=== PATIENT | male | born 1945 | race Caucasian/White ===

== ENCOUNTER 2016-12-25 23:19 | Emergency (ER) | payer MEDICARE, BC ==
[2016-12-25] MEDS ORDERED: Sodium Chloride 0.9% 10 ML Syringe FLUSH PRN (23:47)
[2016-12-25] MEDS ORDERED: Nitroglycerin 0.4 MG Tab.SL SL PRN (23:47)
[2016-12-25] MEDS ORDERED: Aspirin 81 MG Tab.Chew PO ONE (23:48)
[2016-12-25] MEDS ORDERED: Aspirin 81 MG Tab.Chew ONE (23:55)
--- NOTE | 2016-12-26 01:08 | EDM.PDOC ---
ED HPI GENERAL MEDICAL PROBLEM - General Chief Complaint: Cardiovascular Problem Stated Complaint: CHEST TIGHTNESS Time Seen by Provider: 12/25/16 23:39 Source of Information: Reports: Patient History Limitations: Reports: No Limitations - History of Present Illness INITIAL COMMENTS - FREE TEXT/NARRATIVE: This patient comes to the emergency department complaining of substernal chest tightness. It's been going on for 1-1/2 hours. It started while he was lying in bed. His heart rate at that time was 120. The patient has a history of coronary artery disease and had stents placed about 4 years ago. No history of previous NV. The patient's coronary disease was picked up on a stress test and he never had any chest pain. He denies any nausea diaphoresis or shortness of breath. He takes aspirin 325 mg every morning - Related Data Allergies Allergy/AdvReac Type Severity Reaction Status Date / Time Penicillins Allergy Cannot Verified 05/31/16 15:33 Remember Home Meds: Home Meds Clopidogrel [Plavix] 75 mg PO DAILY 07/19/13 [History] Glimepiride [Amaryl] 6 mg PO BRK 07/19/13 [History] Isosorbide Mononitrate [Imdur] 30 mg PO DAILY 07/19/13 [History] Levothyroxine Sodium [Synthroid] 150 mcg PO DAILY 07/19/13 [History] Nitroglycerin [Nitrostat] 0.4 mg SL ASDIRECTED PRN 07/19/13 [History] Propranolol [Inderal] 20 mg PO BID 07/19/13 [History] Simvastatin [Zocor] 40 mg PO BEDTIME 07/19/13 [History] metFORMIN [Glucophage] 1,000 mg PO BID 07/19/13 [History] ALPRAZolam [Xanax] 0.25 mg PO DAILY PRN 03/16/16 [History] Aspirin [Halfprin] 81 mg PO DAILY 03/16/16 [History] Insulin Detemir [Levemir] 0 unit SQ BID 03/16/16 [History] PARoxetine [Paxil] 20 mg PO DAILY 03/16/16 [History] Pantoprazole [Protonix] 40 mg PO DAILY PRN 03/16/16 [History] Past Medical History Cardiovascular History: Reports: High Cholesterol, Hypertension Other Respiratory History: C pap Psychiatric History: Reports: Anxiety Endocrine/Metabolic History: Reports: Diabetes, Type II, Hypothyroidism Hematologic History: Reports: Blood Transfusion(s) - Infectious Disease History Infectious Disease History: Reports: Chicken Pox - Past Surgical History HEENT Surgical History: Reports: Cataract Surgery Cardiovascular Surgical History: Reports: Coronary Artery Stent GI Surgical History: Reports: Colonoscopy Musculoskeletal Surgical History: Reports: Arthroscopic Knee, Hip Replacement Social & Family History - Tobacco Use Smoking Status *Q: Never Smoker Second Hand Smoke Exposure: No - Caffeine Use Caffeine Use: Reports: Coffee, Soda, Tea - Recreational Drug Use Recreational Drug Use: No ED ROS GENERAL - Review of Systems Review Of Systems: ROS reveals no pertinent complaints other than HPI. ED EXAM, GENERAL - Physical Exam Exam: See Below Exam Limited By: No Limitations General Appearance: Alert, No Apparent Distress, Obese Eye Exam: Bilateral Eye: Normal Inspection Throat/Mouth: Normal Inspection Head: Atraumatic Neck: Normal Inspection Respiratory/Chest: Lungs Clear Cardiovascular: Normal Peripheral Pulses, Regular Rate, Rhythm, No Murmur GI/Abdominal: Soft, Non-Tender Back Exam: Normal Inspection Extremities: Normal Inspection Neurological: Alert, Oriented, CN II-XII Intact, No Motor/Sensory Deficits Psychiatric: Normal Affect Skin Exam: Warm, Dry Course - Vital Signs Last Recorded V/S: Last Vital Signs Temp 36.1 C 12/25/16 23:27 Pulse 93 12/26/16 00:50 Resp 16 12/26/16 00:50 BP 145/84 H 12/26/16 00:50 Pulse Ox 96 12/26/16 00:50 - Orders/Labs/Meds Orders: Active Orders 24 hr Category Date Time Status EKG Documentation Completion [RC] ASDIRECTED Care 12/25/16 23:47 Active Chest 1V Frontal [CR] Urgent Exams 12/25/16 23:46 Taken Sodium Chloride 0.9% [Saline Flush] Med 12/25/16 23:47 Active 10 ml FLUSH ASDIRECTED PRN Saline Lock Insert [OM.PC] Urgent Oth 12/25/16 23:46 Ordered EKG 12 Lead [EK] Urgent Ther 12/25/16 23:46 Ordered Medication Orders Sodium Chloride (Saline Flush) 10 ml FLUSH ASDIRECTED PRN PRN Reason: Keep Vein Open Last Admin: 12/25/16 23:55 Dose: 10 ml Labs: Laboratory Tests 12/25/16 12/25/16 Range/Units 23:53 23:53 WBC 8.0 (4.5-11.0) K/uL RBC 3.89 L (4.30-5.90) M/uL Hgb 12.9 (12.0-15.0) g/dL Hct 38.6 L (40.0-54.0) % MCV 99 H (80-98) fL MCH 33 H (27-31) pg MCHC 33 (32-36) % Plt Count 198 (150-400) K/uL Neut % (Auto) 58 (36-66) % Lymph % (Auto) 27 (24-44) % [place] % (Auto) 10 H (2-6) % Eos % (Auto) 5 H (2-4) % Baso % (Auto) 0 (0-1) % Sodium 135 L (140-148) mmol/L Potassium 4.0 (3.6-5.2) mmol/L Chloride 99 L (100-108) mmol/L Carbon Dioxide 32 (21-32) mmol/L Anion Gap 8.0 (5.0-14.0) mmol/L BUN 22 H (7-18) mg/dL Creatinine 1.1 (0.8-1.3) mg/dL Est Cr Clr Drug Dosing 59.81 mL/min Estimated GFR (MDRD) > 60 (>60) Glucose 265 H (74-106) mg/dL Calcium 8.2 L (8.5-10.1) mg/dL Total Bilirubin 0.4 (0.2-1.0) mg/dL AST 12 L (15-37) U/L ALT 24 (12-78) U/L Alkaline Phosphatase 97 (46-116) U/L Troponin I < 0.017 (0.000-0.056) ng/mL Total Protein 7.1 (6.4-8.2) g/dL Albumin 3.4 (3.4-5.0) g/dL Globulin 3.7 H (2.3-3.5) g/dL Albumin/Globulin Ratio 0.9 L (1.2-2.2) Meds: Medications Generic Name Dose Route Start Last Admin Trade Name Freq PRN Reason Stop Dose Admin Sodium Chloride 10 ml 12/25/16 23:47 12/25/16 23:55 Saline Flush FLUSH 10 ml ASDIRECTED PRN Administration Keep Vein Open Discontinued Medications Generic Name Dose Route Start Last Admin Trade Name Roselia PRN Reason Stop Dose Admin Aspirin 324 mg 12/25/16 23:48 12/25/16 23:53 Aspirin PO 12/25/16 23:49 324 mg ONETIME ONE Administration Aspirin Confirm 12/25/16 23:55 12/26/16 00:00 Aspirin Administered 12/25/16 23:56 Not Given Dose 81 mg .ROUTE .STK-MED ONE Nitroglycerin 0.4 mg 12/25/16 23:47 12/25/16 23:55 Nitrostat SL 12/25/16 23:58 0.4 mg Q5M PRN Administration Chest Pain - Radiology Interpretation Free Text/Narrative:: Chest x-ray shows normal heart size normal lung markings - Re-Assessments/Exams Free Text/Narrative Re-Assessment/Exam: 12/26/16 01:06 EKG shows a probable left atrial abnormality right bundle branch block and left anterior fascicular block. All changes previously seen. No evidence of any acute ischemia. This patient received a single sublingual nitroglycerin tablet. This dropped his systolic pressure down to the upper 90s. It did however relieve his pain. He received aspirin 324 mg. I spoke with Dr. Leyva the hospitalist at [facility] in [place] him he has accepted him in transfer. The patient remains pain free with stable vital signs. We did not feel like heparin was indicated this patient Departure - Departure Time of Disposition: 01:08 Disposition: DC/Tfer to [facility] 02 Reason for Transfer *Q: Primary PCI Indicated Condition: fair Clinical Impression: Acute coronary syndrome Forms: ED Department Discharge - My Orders Last 24 Hours: My Active Orders 12/25/16 23:46 Chest 1V Frontal [CR] Urgent Saline Lock Insert [OM.PC] Urgent EKG 12 Lead [EK] Urgent 12/25/16 23:47 EKG Documentation Completion [RC] ASDIRECTED Sodium Chloride 0.9% [Saline Flush] 10 ml FLUSH ASDIRECTED PRN - Assessment/Plan Last 24 Hours: My Active Orders 12/25/16 23:46 Chest 1V Frontal [CR] Urgent Saline Lock Insert [OM.PC] Urgent EKG 12 Lead [EK] Urgent 12/25/16 23:47 EKG Documentation Completion [RC] ASDIRECTED Sodium Chloride 0.9% [Saline Flush] 10 ml FLUSH ASDIRECTED PRN
[2016-12-26 02:52] VITALS: BP 141/62
--- NOTE | 2016-12-29 09:13 | CR ---
Mild cardiomegaly. No focal consolidation. Pulmonary vasculature within normal limits. Calcified nod ule left lung base appears similar compared to remote exam. Difficult to exclude a pulmonary nodule at the left sixth rib laterally. Consider noncontrast, nonurgent chest CT evaluation.
== END 2016-12-26 01:49 ==
LOC: JP.ED 23:19
DX: I24.9 Acute ischemic heart disease, unspecified (principal); I10 Essential (primary) hypertension; E78.00 Pure hypercholesterolemia, unspecified; F41.9 Anxiety disorder, unspecified; E11.9 Type 2 diabetes mellitus without complications; E03.9 Hypothyroidism, unspecified; Z95.5 Presence of coronary angioplasty implant and graft; Z96.649 Presence of unspecified artificial hip joint; Z98.49 Cataract extraction status, unspecified eye; Z98.890 Other specified postprocedural states; Z79.82 Long term (current) use of aspirin; Z79.4 Long term (current) use of insulin; Z79.02 Long term (current) use of antithrombotics/antiplatelets; Z79.899 Other long term (current) drug therapy; Z88.0 Allergy status to penicillin
CPT/HCPCS: 36415; 71010; 80053; 84484; 85025; 93005; 99285; A9270; J7050; 93010; 99284

== ENCOUNTER 2018-08-29 23:23 | Emergency (ER) | payer BC, MEDICARE ==
--- NOTE | 2018-08-29 23:31 | EDM.PDOC ---
ED HPI GENERAL MEDICAL PROBLEM - General Chief Complaint: Chest Pain Stated Complaint: CHEST PAINS Time Seen by Provider: 08/29/18 23:50 Source of Information: Reports: Patient, Family, Old Records, RN History Limitations: Reports: No Limitations - History of Present Illness INITIAL COMMENTS - FREE TEXT/NARRATIVE: 73 yo male awoke tonight about 10:30 pm with anterior chest pain with radiation to the L shoulder. Not worse with breathing. Has known CAD. Has not missed any of his medications recently, includes his ASA and Plavix. Has a persistent cough for about 2 mos. No fever or SOB. Quit smoking about 30 yrs ago. Pain is improving in the ER without any interventions. Had a bout of chest pain earlier in the day associated with exertion, this resolved with NTG x 1. No recent calf pain or unilateral leg swelling. Did not take NTG for this pain tonight. Onset: Today Onset Date: 08/29/18 Onset Time: 22:30 Duration: Hour(s): (1+), Improving Location: Reports: Chest Quality: Reports: Sharp Severity: Moderate Improves with: Reports: Other (time) Worsens with: Reports: Other (uncertain) Context: Reports: Other (See HPI) Associated Symptoms: Reports: Chest Pain, Cough (x about 2 mos.). Denies: Diaphoresis, Fever/Chills, Nausea/Vomiting, Shortness of Breath Treatments GRADER TENDER: Reports: Other (see below) (none) Chest Pain Score (Numeric/FACES): 6 - Related Data Allergies Allergy/AdvReac Type Severity Reaction Status Date / Time Penicillins Allergy Cannot Verified 08/29/18 23:31 Remember Home Meds: Home Meds Clopidogrel [Plavix] 75 mg PO DAILY 07/19/13 [History] Glimepiride [Amaryl] 1 mg PO BRK 07/19/13 [History] Isosorbide Mononitrate [Imdur] 60 mg PO DAILY 07/19/13 [History] Levothyroxine Sodium [Synthroid] 150 mcg PO DAILY 07/19/13 [History] Nitroglycerin [Nitrostat] 0.4 mg SL ASDIRECTED PRN 07/19/13 [History] Propranolol [Inderal] 40 mg PO BID 07/19/13 [History] metFORMIN [Glucophage] 1,000 mg PO BID 07/19/13 [History] ALPRAZolam [Xanax] 0.25 mg PO DAILY PRN 03/16/16 [History] Aspirin [Halfprin] 81 mg PO DAILY 03/16/16 [History] PARoxetine [Paxil] 20 mg PO DAILY 03/16/16 [History] Pantoprazole [Protonix] 40 mg PO DAILY PRN 03/16/16 [History] Cyanocobalamin (Vitamin B12) [Vitamin B12] 1 tab PO DAILY 01/05/18 [History] Folic Acid 1 tab PO DAILY 01/05/18 [History] Insulin Degludec [Tresiba Flextouch U-200] 68 units SQ DAILY 01/05/18 [History] Lisinopril 1 tab PO DAILY 01/05/18 [History] atorvaSTATin [Lipitor] 40 tab PO BEDTIME 01/05/18 [History] Oxybutynin Chloride 0.5 tab PO BID 08/29/18 [History] Past Medical History Cardiovascular History: Reports: High Cholesterol, Hypertension Other Respiratory History: C pap Psychiatric History: Reports: Anxiety Endocrine/Metabolic History: Reports: Diabetes, Type II, Hypothyroidism Hematologic History: Reports: Blood Transfusion(s) - Infectious Disease History Infectious Disease History: Reports: Chicken Pox - Past Surgical History HEENT Surgical History: Reports: Cataract Surgery Cardiovascular Surgical History: Reports: Coronary Artery Stent GI Surgical History: Reports: Colonoscopy Musculoskeletal Surgical History: Reports: Arthroscopic Knee, Hip Replacement Social & Family History - Caffeine Use Caffeine Use: Reports: Coffee, Soda, Tea ED ROS GENERAL - Review of Systems Review Of Systems: See Below Constitutional: Reports: No Symptoms HEENT: Reports: No Symptoms Respiratory: Reports: Cough (not new). Denies: Shortness of Breath, Pleuritic Chest Pain, Sputum, Hemoptysis Cardiovascular: Reports: Chest Pain. Denies: Claudication, Dyspnea on Exertion , Edema, Lightheadedness, Orthopnea, Palpitations, Syncope Endocrine: Reports: No Symptoms GI/Abdominal: Reports: No Symptoms. Denies: Nausea : Reports: No Symptoms Musculoskeletal: Reports: No Symptoms Skin: Reports: No Symptoms Neurological: Reports: No Symptoms Psychiatric: Reports: No Symptoms ED EXAM, GENERAL - Physical Exam Exam: See Below Exam Limited By: No Limitations General Appearance: Alert, WD/WN, No Apparent Distress, Obese Eye Exam: Bilateral Eye: Normal Inspection Ears: Normal External Exam, Normal Canal, Hearing Grossly Normal Ear Exam: Bilateral Ear: Auricle Normal, Canal Normal Nose: Normal Inspection, No Blood Throat/Mouth: Normal Inspection, Normal Lips, Normal Oropharynx, Normal Voice, No Airway Compromise Head: Atraumatic, Normocephalic Neck: Normal Inspection Respiratory/Chest: No Respiratory Distress, Lungs Clear, Normal Breath Sounds, No Accessory Muscle Use, Chest Non-Tender Cardiovascular: Regular Rate, Rhythm, No Edema GI/Abdominal: Normal Bowel Sounds, Soft, Non-Tender, No Distention, Other (obese ) Back Exam: Normal Inspection. No: CVA Tenderness (R), CVA Tenderness (L) Extremities: Normal Inspection, Normal Range of Motion, Non-Tender, Pedal Edema (trace pitting edema to both legs below the knees.). No: No Pedal Edema Neurological: Alert, Oriented, CN II-XII Intact, Normal Cognition, No Motor/ Sensory Deficits Psychiatric: Normal Affect, Normal Mood Skin Exam: Warm, Dry, Intact, Normal Color, No Rash EKG INTERPRETATION EKG Date: 08/29/18 Time: 23:25 Rhythm: NSR Rate (Beats/Min): 90 [place]: Normal P-Wave: Present QRS: RBBB (and LAFB) ST-T: Normal QT: Normal Comparison: No Change Course - Vital Signs Text/Narrative:: Dr. Leyva called @ [facility], [facility]. Last Recorded V/S: Last Vital Signs Temp 36.0 C 08/29/18 23:44 Pulse 77 08/30/18 02:12 Resp 13 08/30/18 02:12 BP 124/79 08/30/18 02:12 Pulse Ox 90 L 08/30/18 02:12 - Orders/Labs/Meds Orders: Active Orders 24 hr Category Date Time Status Cardiac Monitoring [RC] .As Directed Care 08/29/18 23:24 Active EKG Documentation Completion [RC] ASDIRECTED Care 08/29/18 23:24 Active Chest 2V [CR] Stat Exams 08/30/18 00:05 Taken Sodium Chloride 0.9% [Saline Flush] Med 08/29/18 23:51 Active 10 ml FLUSH ASDIRECTED PRN Saline Lock Insert [OM.PC] Routine Oth 08/29/18 23:51 Ordered EKG 12 Lead [EK] Routine Ther 08/29/18 23:24 Ordered Medication Orders Sodium Chloride (Saline Flush) 10 ml FLUSH ASDIRECTED PRN PRN Reason: Keep Vein Open Last Admin: 08/30/18 00:06 Dose: 10 ml Labs: Laboratory Tests 08/29/18 08/29/18 08/29/18 Range/Units 00:01 00:01 00:01 WBC 9.1 (4.5-11.0) K/uL RBC 3.70 L (4.30-5.90) M/uL Hgb 12.3 (12.0-15.0) g/dL Hct 37.8 L (40.0-54.0) % MCV 102 H (80-98) fL MCH 33 H (27-31) pg MCHC 33 (32-36) % Plt Count 210 (150-400) K/uL D-Dimer, Quantitative < 100 (0.0-400.0) ng/mL Sodium 139 L (140-148) mmol/L Potassium 5.0 (3.6-5.2) mmol/L Chloride 99 L (100-108) mmol/L Carbon Dioxide 36 H (21-32) mmol/L Anion Gap 9.0 (5.0-14.0) mmol/L BUN 19 H (7-18) mg/dL Creatinine 1.4 H (0.8-1.3) mg/dL Est Cr Clr Drug Dosing 45.46 mL/min Estimated GFR (MDRD) 50 L (>60) Glucose 310 H (74-106) mg/dL Calcium 9.3 (8.5-10.1) mg/dL Troponin I 0.028 (0.000-0.056) ng/mL 08/30/18 Range/Units 02:20 WBC (4.5-11.0) K/uL RBC (4.30-5.90) M/uL Hgb (12.0-15.0) g/dL Hct (40.0-54.0) % MCV (80-98) fL MCH (27-31) pg MCHC (32-36) % Plt Count (150-400) K/uL D-Dimer, Quantitative (0.0-400.0) ng/mL Sodium (140-148) mmol/L Potassium (3.6-5.2) mmol/L Chloride (100-108) mmol/L Carbon Dioxide (21-32) mmol/L Anion Gap (5.0-14.0) mmol/L BUN (7-18) mg/dL Creatinine (0.8-1.3) mg/dL Est Cr Clr Drug Dosing mL/min Estimated GFR (MDRD) (>60) Glucose (74-106) mg/dL Calcium (8.5-10.1) mg/dL Troponin I 0.156 H* (0.000-0.056) ng/mL Meds: Medications Generic Name Dose Route Start Last Admin Trade Name Freq PRN Reason Stop Dose Admin Sodium Chloride 10 ml 08/29/18 23:51 08/30/18 00:06 Saline Flush FLUSH 10 ml ASDIRECTED PRN Administration Keep Vein Open Discontinued Medications Generic Name Dose Route Start Last Admin Trade Name Freq PRN Reason Stop Dose Admin Aspirin 324 mg 08/30/18 00:42 08/30/18 00:46 Aspirin PO 08/30/18 00:43 324 mg ONETIME ONE Administration - Radiology Interpretation Free Text/Narrative:: CXR-neg Departure - Departure Time of Disposition: 03:00 Disposition: DC/Tfer to Acute Hospital 02 Reason for Transfer *Q: Other Condition: Fair Clinical Impression: Elevated troponin I level Chest pain Qualifiers: Chest pain type: chest pain due to myocardial ischemia Ischemic chest pain type : unstable angina pectoris Qualified Code(s): I20.0 - Unstable angina Referrals: Enrique Burrell MD [Primary Care Provider] - Forms: ED Department Discharge - My Orders Last 24 Hours: My Active Orders 08/29/18 23:24 Cardiac Monitoring [RC] .As Directed EKG Documentation Completion [RC] ASDIRECTED EKG 12 Lead [EK] Routine 08/29/18 23:51 Sodium Chloride 0.9% [Saline Flush] 10 ml FLUSH ASDIRECTED PRN Saline Lock Insert [OM.PC] Routine 08/30/18 00:05 Chest 2V [CR] Stat - Assessment/Plan Last 24 Hours: My Active Orders 08/29/18 23:24 Cardiac Monitoring [RC] .As Directed EKG Documentation Completion [RC] ASDIRECTED EKG 12 Lead [EK] Routine 08/29/18 23:51 Sodium Chloride 0.9% [Saline Flush] 10 ml FLUSH ASDIRECTED PRN Saline Lock Insert [OM.PC] Routine 08/30/18 00:05 Chest 2V [CR] Stat
[2018-08-29] MEDS ORDERED: Sodium Chloride 0.9% 10 ML Syringe FLUSH PRN (23:51)
[2018-08-30] MEDS ORDERED: Aspirin 81 MG Tab.Chew PO ONE (00:42)
[2018-08-30 02:56] VITALS: BP 124/72
--- NOTE | 2018-08-30 09:06 | CR ---
CHEST: 2 view CLINICAL HISTORY:Cough and chest pain COMPARISON:2017 FINDINGS: Heart is mildly enlarged pulmonary vascularity is normal. There are atherosclerotic changes in the aorta. No infiltrate effusion or pneumothorax is seen. There are some stable nodularity in the left lower lung field. Impression: No acute cardiopulmonary process Mild cardiomegaly
== END 2018-08-30 03:42 ==
LOC: JP.ED 23:23
DX: I20.0 Unstable angina (principal); R79.89 Other specified abnormal findings of blood chemistry; E11.9 Type 2 diabetes mellitus without complications; I10 Essential (primary) hypertension; E78.00 Pure hypercholesterolemia, unspecified; E03.9 Hypothyroidism, unspecified; Z79.4 Long term (current) use of insulin; Z79.899 Other long term (current) drug therapy; Z88.0 Allergy status to penicillin
CPT/HCPCS: 36415; 71046; 80048; 84484; 85027; 85379; 93005; 99285; A9270; 93010

== ENCOUNTER 2020-04-01 05:57 | Inpatient (IN) | payer MEDICARE ==
[2020-04-01] MEDS ORDERED: Isosorbide Mononitrate 30 MG Tab.ER PO ONE (06:20)
[2020-04-01] MEDS ORDERED: Propranolol 40 MG Tab PO ONE (06:22)
[2020-04-01] MEDS ORDERED: cefOXitin 2 GM in Sodium Chloride 0.9% 50 ML IV ONE (06:30)
[2020-04-01] MEDS ORDERED: Acetaminophen 500 MG Tab PO ONE (06:30)
[2020-04-01] MEDS ORDERED: Dextrose 5%-Lactated Ringers 1,000 ML IV SCH ×2 (06:30→12:00)
[2020-04-01] MEDS ORDERED: Bupivacaine 0.5%/EPINEPHrine 1:200,000 50 ML MDV ONE (06:58)
[2020-04-01] MEDS ORDERED: Neostigmine Methylsulfate 1 MG/ML 5 ML Syringe ONE (07:07)
[2020-04-01] MEDS ORDERED: Ondansetron 4 MG/2 ML SDV ONE (07:07)
[2020-04-01] MEDS ORDERED: Rocuronium 50 MG/5 ML Vial ONE (07:07)
[2020-04-01] MEDS ORDERED: fentaNYL 250 MCG/5 ML SDV ONE ×2 (07:07→09:08)
[2020-04-01] MEDS ORDERED: Propofol 200 MG/20 ML SDV ONE (07:07)
[2020-04-01] MEDS ORDERED: Glycopyrrolate 0.2 MG/ML 5 ML MDV ONE (07:07)
[2020-04-01] MEDS ORDERED: Succinylcholine 200 MG/10 ML MDV ONE (07:07)
[2020-04-01] MEDS ORDERED: Dexamethasone 4 MG/ML SDV ONE (07:07)
[2020-04-01] MEDS ORDERED: Meropenem 500 MG SDV ONE ×2 (08:58→10:19)
[2020-04-01] MEDS ORDERED: Lactated Ringers 1,000 ML ONE (09:58)
[2020-04-01] MEDS ORDERED: Sodium Chloride 0.9% 10 ML ONE (10:19)
[2020-04-01] MEDS ORDERED: Linezolid 600 MG in Premix Bag 1 BAG IV ONE (10:20)
[2020-04-01] MEDS ORDERED: Naloxone 0.4 MG/ML SDV IVPUSH PRN (10:25)
[2020-04-01] MEDS: HYDROmorphone/Normal Saline 15 MG/30 ML PCA IV PRN (11:01)
[2020-04-01] MEDS ORDERED: Glucose Gel 15 GM in 37.5 GM Tube PO PRN (11:39)
[2020-04-01] MEDS ORDERED: Glucagon,Human Recombinant 1 MG Vial IM PRN (11:39)
[2020-04-01] MEDS ORDERED: 50% Dextrose in Water 50 ML Syringe IVPUSH PRN (11:39)
[2020-04-01] MEDS: Insulin Lispro 100 Unit/ML 3 ML KwikPen SUBCUT PRN ×3 (11:47→23:20)
[2020-04-01] MEDS ORDERED: Ondansetron 4 MG/2 ML SDV IVPUSH PRN (11:54)
[2020-04-01] MEDS ORDERED: hydrOXYzine HCL 100 MG/2 ML SDV IM PRN (11:54)
[2020-04-01] MEDS: Dextrose 5%-Lactated Ringers 1,000 ML IV SCH (12:00)
[2020-04-01] MEDS: Lactated Ringers 1,000 ML IV SCH (12:00)
[2020-04-01] MEDS ORDERED: Nitroglycerin 0.4 MG Tab.SL SL PRN (13:10)
[2020-04-01] MEDS: Meropenem 500 MG in Sodium Chloride 0.9% 50 ML IV SCH ×2 (14:51→21:01)
[2020-04-01] MEDS: Pantoprazole 40 MG Vial IV SCH (14:52)
[2020-04-01] MEDS ORDERED: Lactated Ringers 500 ML IV ONE (16:45)
[2020-04-01] MEDS: metFORMIN 500 MG Tab PO SCH (20:08)
[2020-04-01] MEDS: Lisinopril 2.5 MG Tab PO SCH (20:08)
[2020-04-01] MEDS: Isosorbide Mononitrate 30 MG Tab.ER PO SCH (20:08)
[2020-04-01] MEDS: Propranolol 40 MG Tab PO SCH (21:01)
[2020-04-01] MEDS: Linezolid 600 MG in Premix Bag 1 BAG IV SCH (21:43)
[2020-04-01] MEDS: Lactated Ringers 500 ML IV SCH (21:44)
[2020-04-02] MEDS: Lactated Ringers 1,000 ML IV SCH
[2020-04-02] MEDS ORDERED: Lactated Ringers 500 ML IV SCH (02:15)
[2020-04-02] MEDS: Dextrose 5%-Lactated Ringers 1,000 ML IV SCH (02:15)
[2020-04-02] MEDS: Lactated Ringers 500 ML IV SCH (02:22)
[2020-04-02] MEDS: Pantoprazole 40 MG Vial IV SCH ×2 (02:28→14:10)
[2020-04-02] MEDS: Meropenem 500 MG in Sodium Chloride 0.9% 50 ML IV SCH ×4 (02:28→21:08)
[2020-04-02] MEDS: Insulin Lispro 100 Unit/ML 3 ML KwikPen SUBCUT PRN ×4 (05:06→23:28)
[2020-04-02] MEDS: LORazepam 2 MG/ML SDV IV PRN ×2 (05:32→16:33)
[2020-04-02] MEDS ORDERED: Sodium Chloride 0.9% 500 ML IV ONE (06:31)
[2020-04-02] MEDS: Propranolol 40 MG Tab PO SCH ×2 (08:25→21:25)
[2020-04-02] MEDS: Isosorbide Mononitrate 30 MG Tab.ER PO SCH (08:25)
[2020-04-02] MEDS: Sodium Chloride 0.9% 1,000 ML IV SCH ×3 (08:25→19:55)
[2020-04-02] MEDS: metFORMIN 500 MG Tab PO SCH ×2 (08:28→16:59)
[2020-04-02] MEDS: Magnesium Sulfate/Water 2 GM in Premix Bag 1 BAG IV SCH ×3 (08:28→21:15)
[2020-04-02] MEDS: Aspirin 81 MG Tab.EC PO SCH (08:28)
[2020-04-02] MEDS: Clopidogrel 75 MG Tab PO SCH (08:28)
[2020-04-02] MEDS: Lisinopril 2.5 MG Tab PO SCH (08:32)
[2020-04-02] MEDS: Furosemide 20 MG/2 ML VIAL IV SCH ×2 (10:06→10:39)
[2020-04-02] MEDS: Linezolid 600 MG in Premix Bag 1 BAG IV SCH ×2 (10:06→21:49)
[2020-04-02] MEDS ORDERED: Norepinephrine 4 MG in Dextrose 5% in Water 246 ML IV SCH ×2 (10:30)
[2020-04-02] MEDS ORDERED: Sodium Polystyrene Sulfonate 15 GM/60 ML Susp 60 ML Bot PO ONE (11:00)
--- NOTE | 2020-04-02 13:54 | PCM.CONS ---
H&P History of Present Illness - General Date of Service: 04/02/20 Admit Problem/Dx: Admission Diagnosis/Problem Admission Diagnosis/Problem Surgical procedure Source of Information: Patient, Family, Provider, RN Notes Reviewed History Limitations: Reports: Altered Mental Status - History of Present Illness Initial Comments - Free Text/Narative: Mr. Arceo is a 74-year-old gentleman who I have been asked to see by Dr. Nieto for hospitalist consult and assistance in postoperative medical management. Mr. Arceo was admitted yesterday by Dr. Nieto and underwent cholecystectomy. Surgery was much more complicated than originally anticipated. He was found to have an abscess with involvement of the hepatic flexure of the colon. Surgery was much more prolonged than expected and associated with significant infection. During the night he has required repeated fluid boluses to maintain adequate blood pressures. White blood cell count is markedly elevated and he has been treated with Zyvox and meropenem. He has developed acute kidney injury and associated hyperkalemia. He is conversant this morning but confused and somewhat sleepy. - Related Data Allergies/Adverse Reactions: Allergies Allergy/AdvReac Type Severity Reaction Status Date / Time Penicillins Allergy Cannot Verified 08/29/18 23:31 Remember Home Medications: Home Meds Clopidogrel [Plavix] 75 mg PO DAILY 07/19/13 [History] Glimepiride [Amaryl] 6 mg PO BRK 07/19/13 [History] Isosorbide Mononitrate [Imdur] 60 mg PO DAILY 07/19/13 [History] Levothyroxine Sodium [Synthroid] 150 mcg PO DAILY 07/19/13 [History] Nitroglycerin [Nitrostat] 0.4 mg SL ASDIRECTED PRN 07/19/13 [History] Propranolol [Inderal] 40 mg PO BID 07/19/13 [History] metFORMIN [Glucophage] 1,000 mg PO BID 07/19/13 [History] ALPRAZolam [Xanax] 0.25 mg PO DAILY PRN 03/16/16 [History] Aspirin [Halfprin] 81 mg PO DAILY 03/16/16 [History] PARoxetine [Paxil] 20 mg PO DAILY 03/16/16 [History] Pantoprazole [Protonix] 40 mg PO DAILY PRN 03/16/16 [History] Folic Acid 1 mg PO DAILY 01/05/18 [History] Insulin Degludec [Tresiba Flextouch U-200] 75 units SQ DAILY 01/05/18 [History] Lisinopril 2.5 mg PO DAILY 01/05/18 [History] atorvaSTATin [Lipitor] 40 tab PO BEDTIME 01/05/18 [History] Oxybutynin Chloride 5 mg PO BID 08/29/18 [History] Furosemide 20 mg PO DAILY 03/28/20 [History] SitaGLIPtin [Januvia] 50 mg PO DAILY 03/28/20 [History] hydrOXYzine HCL [Hydroxyzine HCl] 50 mg PO BEDTIME 03/28/20 [History] Past Medical History HEENT History: Reports: Impaired Vision Other HEENT History: wears glasses Cardiovascular History: Reports: High Cholesterol, Hypertension, SOB on Exertion, Stents Respiratory History: Reports: Other (See Below) Other Respiratory History: C pap-does not use Gastrointestinal History: Reports: Cholelithiasis, GERD Musculoskeletal History: Reports: Back Pain, Chronic Neurological History: Reports: Concussion Psychiatric History: Reports: Anxiety Endocrine/Metabolic History: Reports: Diabetes, Type II, Hypothyroidism, Obesity/BMI 30+ Hematologic History: Reports: Blood Transfusion(s) - Infectious Disease History Infectious Disease History: Reports: Chicken Pox, Measles, MRSA, Mumps, Rubella Other Infectious Disease History: states has been retested negative for MRSA - Past Surgical History HEENT Surgical History: Reports: Cataract Surgery, Oral Surgery, Tonsillectomy Cardiovascular Surgical History: Reports: Coronary Artery Stent Respiratory Surgical History: Reports: None GI Surgical History: Reports: Colonoscopy Endocrine Surgical History: Reports: None Neurological Surgical History: Reports: Lumbar Spine Musculoskeletal Surgical History: Reports: Arthroscopic Knee, Hip Replacement Dermatological Surgical History: Reports: None Social & Family History - Family History Cardiac: Reports: Heart Valve Replacement, [place] Musculoskeletal: Reports: Arthritis Neurological: Reports: Alzheimers Disease Oncologic: Reports: Colon, Lung - Tobacco Use Smoking Status *Q: Former Smoker Used Tobacco, but Quit: Yes Month/Year Tobacco Last Used: 1989 Second Hand Smoke Exposure: No - Caffeine Use Caffeine Use: Reports: Coffee - Recreational Drug Use Recreational Drug Use: No H&P Review of Systems - Review of Systems: Review Of Systems: See Below General: Reports: ROS unobtainable (Confusion) Exam - Exam Exam: See Below - Vital Signs Vital Signs: Last Vital Signs Temp 97.8 F 04/02/20 12:00 Pulse 86 04/02/20 09:30 Resp 10 L 04/02/20 13:00 BP 125/42 L 04/02/20 13:00 Pulse Ox 96 04/02/20 13:00 Weight: 253 lb - Exam Quality Assessment: Supplemental Oxygen, Urinary Catheter, DVT Prophylaxis General: Cooperative, Mild Distress, Sedated, Lethargic Neck: Supple, Trachea Midline, +2 Carotid Pulse wo Bruit Lungs: Clear to Auscultation, Normal Respiratory Effort, Decreased Breath Sounds. No: Rhonchi, Wheezing Cardiovascular: Regular Rate, Regular Rhythm, Normal S1, Normal S2, Systolic Murmur. No: Diastolic Murmur GI/Abdominal Exam: Soft, No Organomegaly, Tender. No: Distended, Guarding, Rigid, Rebound Extremities: Non-Tender, No Pedal Edema - Patient Data Lab Results Last 24 hrs: Laboratory Results - last 24 hr 04/02/20 04/02/20 04/02/20 Range/Units 04:10 04:10 05:45 WBC 28.5 H (4.5-11.0) K/uL RBC 2.64 L (4.30-5.90) M/uL Hgb 8.1 L D (12.0-15.0) g/dL Hct 26.8 L (40.0-54.0) % MCV 102 H (80-98) fL MCH 31 (27-31) pg MCHC 30 L (32-36) % Plt Count 385 (150-400) K/uL Sodium 133 L 133 L (140-148) mmol/L Potassium 6.4 H* 6.1 H* (3.6-5.2) mmol/L Chloride 98 L 98 L (100-108) mmol/L Carbon Dioxide 29 29 (21-32) mmol/L Anion Gap 12.4 12.1 (5.0-14.0) mmol/L BUN 29 H D 29 H (7-18) mg/dL Creatinine 1.9 H D 2.0 H (0.8-1.3) mg/dL Est Cr Clr Drug Dosing 32.72 31.09 mL/min Estimated GFR (MDRD) 35 L 33 L (>60) Glucose 297 H 294 H (74-106) mg/dL Calcium 7.9 L 7.8 L (8.5-10.1) mg/dL Phosphorus 5.2 H (2.5-4.9) mg/dL Magnesium 1.2 L (1.8-2.4) mg/dL Total Bilirubin 0.5 (0.2-1.0) mg/dL AST 21 (15-37) U/L ALT 24 (12-78) U/L Alkaline Phosphatase 151 H (46-116) U/L NT-Pro-B Natriuret Pep 787 H (5-125) pg/mL Total Protein 6.3 L (6.4-8.2) g/dL Albumin 2.2 L (3.4-5.0) g/dL Globulin 4.1 H (2.3-3.5) g/dL Albumin/Globulin Ratio 0.5 L (1.2-2.2) Blood Type Gel Antibody Screen Crossmatch 04/02/20 04/02/20 04/02/20 Range/Units 05:45 11:58 11:58 WBC 26.6 H (4.5-11.0) K/uL RBC 2.90 L (4.30-5.90) M/uL Hgb 8.7 L (12.0-15.0) g/dL Hct 28.5 L (40.0-54.0) % MCV 98 (80-98) fL MCH 30 (27-31) pg MCHC 31 L (32-36) % Plt Count 358 (150-400) K/uL Sodium 133 L (140-148) mmol/L Potassium 5.9 H (3.6-5.2) mmol/L Chloride 98 L (100-108) mmol/L Carbon Dioxide 28 (21-32) mmol/L Anion Gap 12.9 (5.0-14.0) mmol/L BUN 29 H (7-18) mg/dL Creatinine 1.8 H (0.8-1.3) mg/dL Est Cr Clr Drug Dosing 34.54 mL/min Estimated GFR (MDRD) 37 L (>60) Glucose 284 H (74-106) mg/dL Calcium 7.6 L (8.5-10.1) mg/dL Phosphorus (2.5-4.9) mg/dL Magnesium (1.8-2.4) mg/dL Total Bilirubin 0.7 (0.2-1.0) mg/dL AST 24 (15-37) U/L ALT 24 (12-78) U/L Alkaline Phosphatase 143 H (46-116) U/L NT-Pro-B Natriuret Pep 634 H (5-125) pg/mL Total Protein 6.3 L (6.4-8.2) g/dL Albumin 2.3 L (3.4-5.0) g/dL Globulin 4.0 H (2.3-3.5) g/dL Albumin/Globulin Ratio 0.6 L (1.2-2.2) Blood Type A POSITIVE Gel Antibody Screen Negative Crossmatch See Detail Result Diagrams: 04/02/20 11:58 04/02/20 11:58 [place] Results Last 24 hrs: Microbiology 04/01/20 09:06 Gram Stain - Final Abdominal Fluid - Drainage Wound Culture - Preliminary Anaerobic Culture - Preliminary Sepsis Event Note - Evaluation Sepsis Screening Result: No Definite Risk - Focused Exam Vital Signs: Vital Signs Temp Temp Pulse Resp BP Pulse Ox 04/02/20 13:00 10 L 125/42 L 96 04/02/20 12:00 97.8 F 13 118/39 L 96 04/02/20 11:24 96 04/02/20 11:00 11 L 120/55 L 97 04/02/20 10:00 13 104/56 L 94 L 04/02/20 09:30 98.3 F 86 13 92/44 L 93 L 04/02/20 09:00 97.8 F 84 12 107/79 93 L 04/02/20 08:30 97.8 F 89 20 130/46 L 92 L 04/02/20 08:00 97.4 F 82 10 L 96/33 L 96 04/02/20 07:44 97.2 F 80 11 L 99/36 L 04/02/20 07:29 97.3 F 79 10 L 87/33 L 96 04/02/20 07:14 97.3 F 77 10 L 103/36 L 95 04/02/20 06:59 97.3 F 76 10 L 109/46 L 96 04/02/20 06:46 96.9 F 82 11 L 118/37 L 88 L 04/02/20 06:00 97.4 F 72 10 L 97/53 L 96 04/02/20 05:00 97.1 F 78 9 L 105/58 L 95 04/02/20 04:00 97.3 F 76 11 L 115/52 L 96 04/02/20 03:00 97.4 F 75 10 L 107/39 L 93 L 04/02/20 02:00 68 13 97/40 L 94 L Consult PN Assessment/Plan Procedures: Procedures ASSAY OF TROPONIN QUANT (08/29/18) CARDIAC REHAB/MONITOR (11/30/18) CARDIOVASCULAR STRESS TEST (01/07/18) CARDIOVASCULAR STRESS TEST (01/07/18) CARDIOVASCULAR STRESS TEST (03/27/16) CARDIOVASCULAR STRESS TEST (03/27/16) CHEST X-RAY 1 VIEW FRONTAL (12/25/16) CHEST X-RAY 2VW FRONTAL&LATL (05/31/16) COMPLETE CBC AUTOMATED (08/29/18) COMPLETE CBC W/AUTO DIFF WBC (12/25/16) COMPREHEN METABOLIC PANEL (12/25/16) ELECTROCARDIOGRAM TRACING (08/29/18) EMERGENCY DEPT VISIT (08/29/18) EMERGENCY DEPT VISIT (05/31/16) EMERGENCY DEPT VISIT (05/07/15) EMERGENCY DEPT VISIT (05/07/15) FIBRIN DEGRADATION QUANT (08/29/18) HT MUSCLE IMAGE SPECT MULT (01/07/18) METABOLIC PANEL TOTAL CA (08/29/18) POLYSOM 6/> YRS 4/> WILLI (06/05/14) POLYSOM 6/>YRS CPAP 4/> PARM (08/19/14) ROUTINE VENIPUNCTURE (08/29/18) TTE F-UP OR LMTD (10/11/18) TTE W/DOPPLER COMPLETE (12/06/17) X-RAY EXAM CHEST 2 VIEWS (08/29/18) Problem List Initiated/Reviewed/Updated: Yes My Orders Last 24 Hours: My Active Orders 04/02/20 10:22 Consult to Physical Therapy [PT Evaluation and Treatment] [CONS] Routine 04/02/20 10:30 Norepinephrine [Levophed] 4 mg Dextrose 5% in Water 246 ml IV TITRATE Plan: ASSESSMENT AND RECOMMENDATIONS HYPOTENSION-likely secondary to third spacing of fluid with recent extensive surgery. Possible component of underlying infection. -IV fluids as needed -IV norepinephrine if needed to maintain MAP above 65 -Continue current IV antibiotics pending culture results ACUTE KIDNEY INJURY-secondary to transient hypotension -IV fluids as above -Maintain MAP greater than 65 -Closely monitor urine output and renal function HYPERKALEMIA-secondary to acute kidney injury -Kayexalate 30 g p.o. given this morning -Monitor serial potassium levels STATUS POST SURGICAL PROCEDURE -Postoperative care per Dr. Nieto -Vigorous pulmonary toilet -Encourage activity Requesting Provider: CLIFTON Date Consult Requested: 04/02/20 Reason for Consult: Postoperative medical management Patient History Reviewed: Yes
[2020-04-02] MEDS ORDERED: Furosemide 20 MG/2 ML VIAL IVPUSH ONE (19:01)
[2020-04-03] MEDS: Magnesium Sulfate/Water 2 GM in Premix Bag 1 BAG IV SCH ×4 (01:48→20:20)
[2020-04-03] MEDS: Meropenem 500 MG in Sodium Chloride 0.9% 50 ML IV SCH ×4 (02:52→21:23)
[2020-04-03] MEDS: Sodium Chloride 0.9% 1,000 ML IV SCH ×3 (03:01→23:12)
[2020-04-03] MEDS: LORazepam 2 MG/ML SDV IV PRN ×2 (05:04→18:49)
[2020-04-03] MEDS: Insulin Lispro 100 Unit/ML 3 ML KwikPen SUBCUT PRN ×4 (05:04→23:17)
[2020-04-03] MEDS: metFORMIN 500 MG Tab PO SCH ×2 (09:00→16:04)
[2020-04-03] MEDS: Lisinopril 2.5 MG Tab PO SCH (09:10)
--- NOTE | 2020-04-03 09:25 | PCM.CONSN ---
- General Info Date of Service: 04/03/20 Subjective Update: Mr. Arceo been stable and improved over the last 24 hours. Hypotension has resolved, renal function is back to baseline, and hyperkalemia has resolved. He has been up in the chair and walking short distances. - Review of Systems General: Reports: Weakness, Fatigue. Denies: Fever, Chills Pulmonary: Reports: No Symptoms Cardiovascular: Reports: No Symptoms Gastrointestinal: Reports: Abdominal Pain. Denies: Constipation, Diarrhea, Difficulty Swallowing, Flatus, Nausea, Vomiting - Patient Data Vitals - Most Recent: Last Vital Signs Temp 96.8 F L 04/03/20 05:00 Pulse 82 04/03/20 06:00 Resp 15 04/03/20 06:00 BP 133/55 L 04/03/20 06:00 Pulse Ox 94 L 04/03/20 06:00 Weight - Most Recent: 253 lb I&O - Last 24 Hours: Intake & Output 04/02/20 04/03/20 04/03/20 22:59 06:59 14:59 Intake Total 3208 1938 Output Total 1185 730 Balance 2022 1208 Lab Results Last 24 Hours: Laboratory Results - last 24 hr 04/02/20 04/02/20 04/02/20 Range/Units 05:45 11:58 11:58 WBC 26.6 H (4.5-11.0) K/uL RBC 2.90 L (4.30-5.90) M/uL Hgb 8.7 L (12.0-15.0) g/dL Hct 28.5 L (40.0-54.0) % MCV 98 (80-98) fL MCH 30 (27-31) pg MCHC 31 L (32-36) % Plt Count 358 (150-400) K/uL Sodium 133 L (140-148) mmol/L Potassium 5.9 H (3.6-5.2) mmol/L Chloride 98 L (100-108) mmol/L Carbon Dioxide 28 (21-32) mmol/L Anion Gap 12.9 (5.0-14.0) mmol/L BUN 29 H (7-18) mg/dL Creatinine 1.8 H (0.8-1.3) mg/dL Est Cr Clr Drug Dosing 34.54 mL/min Estimated GFR (MDRD) 37 L (>60) Glucose 284 H (74-106) mg/dL Calcium 7.6 L (8.5-10.1) mg/dL Phosphorus (2.5-4.9) mg/dL Total Bilirubin 0.7 (0.2-1.0) mg/dL AST 24 (15-37) U/L ALT 24 (12-78) U/L Alkaline Phosphatase 143 H (46-116) U/L NT-Pro-B Natriuret Pep 634 H (5-125) pg/mL Total Protein 6.3 L (6.4-8.2) g/dL Albumin 2.3 L (3.4-5.0) g/dL Globulin 4.0 H (2.3-3.5) g/dL Albumin/Globulin Ratio 0.6 L (1.2-2.2) Blood Type A POSITIVE Gel Antibody Screen Negative Crossmatch See Detail 04/02/20 04/02/20 04/03/20 Range/Units 17:00 17:00 05:33 WBC 27.3 H 20.1 H (4.5-11.0) K/uL RBC 2.82 L 3.09 L (4.30-5.90) M/uL Hgb 8.6 L 9.4 L (12.0-15.0) g/dL Hct 27.6 L 30.0 L (40.0-54.0) % MCV 98 97 (80-98) fL MCH 31 30 (27-31) pg MCHC 31 L 31 L (32-36) % Plt Count 351 314 (150-400) K/uL Sodium 135 L (140-148) mmol/L Potassium 4.9 (3.6-5.2) mmol/L Chloride 99 L (100-108) mmol/L Carbon Dioxide 29 (21-32) mmol/L Anion Gap 11.9 (5.0-14.0) mmol/L BUN 28 H (7-18) mg/dL Creatinine 1.7 H (0.8-1.3) mg/dL Est Cr Clr Drug Dosing 36.53 mL/min Estimated GFR (MDRD) 40 L (>60) Glucose 264 H (74-106) mg/dL Calcium 7.9 L (8.5-10.1) mg/dL Phosphorus (2.5-4.9) mg/dL Total Bilirubin 0.5 (0.2-1.0) mg/dL AST 22 (15-37) U/L ALT 22 (12-78) U/L Alkaline Phosphatase 144 H (46-116) U/L NT-Pro-B Natriuret Pep 750 H (5-125) pg/mL Total Protein 6.3 L (6.4-8.2) g/dL Albumin 2.4 L (3.4-5.0) g/dL Globulin 3.9 H (2.3-3.5) g/dL Albumin/Globulin Ratio 0.6 L (1.2-2.2) Blood Type Gel Antibody Screen Crossmatch 04/03/20 Range/Units 05:33 WBC (4.5-11.0) K/uL RBC (4.30-5.90) M/uL Hgb (12.0-15.0) g/dL Hct (40.0-54.0) % MCV (80-98) fL MCH (27-31) pg MCHC (32-36) % Plt Count (150-400) K/uL Sodium 135 L (140-148) mmol/L Potassium 4.6 (3.6-5.2) mmol/L Chloride 98 L (100-108) mmol/L Carbon Dioxide 31 (21-32) mmol/L Anion Gap 10.6 (5.0-14.0) mmol/L BUN 20 H (7-18) mg/dL Creatinine 1.2 (0.8-1.3) mg/dL Est Cr Clr Drug Dosing 51.75 mL/min Estimated GFR (MDRD) 59 L (>60) Glucose 195 H (74-106) mg/dL Calcium 7.5 L (8.5-10.1) mg/dL Phosphorus 1.9 L (2.5-4.9) mg/dL Total Bilirubin 0.5 (0.2-1.0) mg/dL AST 25 (15-37) U/L ALT 22 (12-78) U/L Alkaline Phosphatase 138 H (46-116) U/L NT-Pro-B Natriuret Pep 1382 H (5-125) pg/mL Total Protein 6.3 L (6.4-8.2) g/dL Albumin 2.3 L (3.4-5.0) g/dL Globulin 4.0 H (2.3-3.5) g/dL Albumin/Globulin Ratio 0.6 L (1.2-2.2) Blood Type Gel Antibody Screen Crossmatch [place] Results Last 24 Hours: Microbiology 04/01/20 09:06 Gram Stain - Final Abdominal Fluid - Drainage Wound Culture - Final Viridans Streptococcus Viridans Streptococcus#2 Anaerobic Culture - Preliminary NO GROWTH AFTER 2 DAYS Med Orders - Current: Current Medications Alogliptin Benzoate (Alogliptin) 12.5 mg PO DAILY [facility] Last Admin: 04/02/20 08:28 Dose: 12.5 mg Documented by: Alvimopan (Entereg) 12 mg PO BID [facility] Stop: 04/08/20 21:01 Last Admin: 04/02/20 21:25 Dose: 12 mg Documented by: Aspirin (Halfprin) 81 mg PO DAILY [facility] Last Admin: 04/02/20 08:28 Dose: 81 mg Documented by: Clopidogrel Bisulfate (Plavix) 75 mg PO DAILY [facility] Last Admin: 04/02/20 08:28 Dose: 75 mg Documented by: Dextrose (Glutose 15) 15 gm PO ASDIRECTED PRN PRN Reason: HYPOGLYCEMIA Dextrose/Water (Dextrose 50% In Water) 50 ml IVPUSH ASDIRECTED PRN PRN Reason: HYPOGLYCEMIA Furosemide (Lasix) 20 mg IV DAILY [facility] Last Admin: 04/02/20 10:39 Dose: 20 mg Documented by: Glucagon (Glucagen) 1 mg IM ASDIRECTED PRN PRN Reason: HYPOGLYCEMIA Hydromorphone HCl (Dilaudid Glassware Maker 15 Mg In Ns 30 Ml) 0 mg IV ASDIRECTED PRN; Protocol PRN Reason: Pain Last Admin: 04/01/20 11:01 Dose: 0.3 mg Documented by: Hydroxyzine HCl (Vistaril) 100 mg IM Q4H PRN PRN Reason: PAIN Linezolid 600 mg/ Premix 300 mls @ 300 mls/hr IV Q12H [facility] Last Admin: 04/02/20 21:49 Dose: 300 mls/hr Documented by: Meropenem 500 mg/ Sodium (Chloride) 50 mls @ 100 mls/hr IV Q6H [facility] Last Admin: 04/03/20 02:52 Dose: 100 mls/hr Documented by: Lactated Ringer's (Ringers, Lactated) 500 mls @ 500 mls/hr IV ASDIRECTED [facility] Last Admin: 04/02/20 02:22 Dose: 500 mls/hr Documented by: Magnesium Sulfate 2 gm/ Premix 50 mls @ 25 mls/hr IV Q6H [facility] Stop: 04/05/20 03:59 Last Admin: 04/03/20 01:48 Dose: 25 mls/hr Documented by: Norepinephrine Bitartrate 4 mg (/ Dextrose/Water) 250 mls @ 7.5 mls/hr IV TITRATE [facility]; Protocol Sodium Chloride (Normal Saline) 1,000 mls @ 100 mls/hr IV ASDIRECTED [facility] Insulin Human Lispro (Humalog) 0 unit SUBCUT Q6H PRN; Protocol PRN Reason: MEDIUM CORRECTIONAL DOSING Last Admin: 04/03/20 05:04 Dose: 2 units Documented by: Isosorbide Mononitrate (Imdur) 60 mg PO DAILY [facility] Last Admin: 04/02/20 08:25 Dose: Not Given Documented by: Lisinopril (Prinivil) 2.5 mg PO DAILY [facility] Last Admin: 04/02/20 08:32 Dose: Not Given Documented by: Lorazepam (Ativan) 0.25 mg IV Q6H PRN PRN Reason: ANXIETY Last Admin: 04/03/20 05:04 Dose: 0.25 mg Documented by: Metformin HCl (Glucophage) 1,000 mg PO BIDMEALS [facility] Last Admin: 04/02/20 16:59 Dose: 1,000 mg Documented by: Naloxone HCl (Narcan) 0.1 mg IVPUSH Q2M PRN PRN Reason: Respiratory Distress Nitroglycerin (Nitrostat) 0.4 mg SL ASDIRECTED PRN PRN Reason: CHEST PAIN Ondansetron HCl (Zofran) 4 mg IVPUSH Q4H PRN PRN Reason: Nausea Pantoprazole Sodium (Protonix Iv) 40 mg IV Q24H [facility] Propranolol HCl (Inderal) 40 mg PO BID [facility] Last Admin: 04/02/20 21:25 Dose: 40 mg Documented by: Discontinued Medications Acetaminophen (Tylenol Extra Strength) 1,000 mg PO ONETIME ONE Stop: 04/01/20 06:31 Last Admin: 04/01/20 06:23 Dose: 1,000 mg Documented by: Bupivacaine HCl/Epinephrine Bitart (Marcaine 0.5%/Epinephrine 1:200,000) Confirm Administered Dose 50 ml .ROUTE .STK-MED ONE Stop: 04/01/20 06:59 Last Admin: 04/01/20 11:15 Dose: 50 ml Documented by: Ropivacaine 59 ml/Dexamethasone 8 mg/Epinephrine HCl 0.4 mg/ Sodium Chloride 18.6 ml 0 ml NERVRT ASDIRECTED [facility] Last Admin: 04/01/20 08:45 Dose: 80 syringe Documented by: Dexamethasone (Dexamethasone) Confirm Administered Dose 4 mg .ROUTE .STK-MED ONE Stop: 04/01/20 07:08 Fentanyl (Sublimaze) Confirm Administered Dose 250 mcg .ROUTE .ST-MED ONE Stop: 04/01/20 07:08 Fentanyl (Sublimaze) Confirm Administered Dose 250 mcg .ROUTE .STK-MED ONE Stop: 04/01/20 09:09 Furosemide (Lasix) 20 mg IVPUSH ONETIME ONE Stop: 04/02/20 19:02 Last Admin: 04/02/20 20:55 Dose: 20 mg Documented by: Glycopyrrolate (Robinul) Confirm Administered Dose 1 mg .ROUTE .STK-MED ONE Stop: 04/01/20 07:08 Cefoxitin Sodium 2 gm/ Sodium (Chloride) 50 mls @ 100 mls/hr IV ONETIME ONE Stop: 04/01/20 06:59 Last Admin: 04/01/20 08:13 Dose: 100 mls/hr Documented by: Dextrose/Lactated Ringer's (Dextrose 5%-Lactated Ringers) 1,000 mls [facility] Admin: 04/01/20 07:22 Dose: 100 mls/hr Documented by: Lactated Ringer's (Ringers, Lactated) Confirm Administered Dose 1,000 mls @ as directed .ROUTE .STK-MED ONE Stop: 04/01/20 09:59 Linezolid (Zyvox) Confirm Administered Dose 300 mls @ as directed .ROUTE .STK- MED ONE Stop: 04/01/20 10:06 Linezolid (Zyvox) Confirm Administered Dose 300 mls @ as directed .ROUTE .STK- MED ONE Stop: 04/01/20 10:07 Linezolid 600 mg/ Premix 300 mls @ 300 mls/hr IV ONETIME ONE Stop: 04/01/20 11:19 Last Admin: 04/01/20 10:17 Dose: 300 mls/hr Documented by: Sodium Chloride (Normal Saline) Confirm Administered Dose 10 mls @ as directed .ROUTE .STK-MED ONE Stop: 04/01/20 10:20 Dextrose/Lactated Ringer's (Dextrose 5%-Lactated Ringers) 1,000 mls @ 25 mls/hr IV ASDIRECTED [facility] Lactated Ringer's (Ringers, Lactated) 1,000 mls @ 125 mls/hr IV ASDIRECTED [facility] Last Admin: 04/02/20 00:00 Dose: 125 mls/hr Documented by: Dextrose/Lactated Ringer's (Dextrose 5%-Lactated Ringers) 1,000 mls @ 75 mls/hr IV ASDIRECTED [facility] Last Admin: 04/02/20 02:15 Dose: 75 mls/hr Documented by: Lactated Ringer's (Ringers, Lactated) 500 mls @ 500 mls/hr IV .BOLUS ONE Stop: 04/01/20 17:44 Last Admin: 04/01/20 16:51 Dose: 500 mls/hr Documented by: Lactated Ringer's (Ringers, Lactated) 500 mls @ 500 mls/hr IV ASDIRECTED [facility] Stop: 04/02/20 03:14 Sodium Chloride (Normal Saline) 500 mls @ 500 mls/hr IV .BOLUS ONE Stop: 04/02/20 07:30 Last Admin: 04/02/20 06:55 Dose: 500 mls/hr Documented by: Sodium Chloride (Normal Saline) 1,000 mls @ 175 mls/hr IV ASDIRECTED [facility] Last Admin: 04/03/20 03:01 Dose: 175 mls/hr Documented by: Isosorbide Mononitrate (Imdur) 60 mg PO ONETIME ONE Stop: 04/01/20 06:21 Last Admin: 04/01/20 07:08 Dose: 60 mg Documented by: Linezolid (Zyvox) 600 mg IRR .STK-MED ONE Stop: 04/01/20 10:01 Last Admin: 04/01/20 10:00 Dose: 600 mg Documented by: Linezolid (Zyvox) 600 mg IRR .STK-MED ONE Stop: 04/01/20 10:33 Last Admin: 04/01/20 10:32 Dose: 600 mg Documented by: Meropenem (Merrem) Confirm Administered Dose 500 mg .ROUTE .STK-MED ONE Stop: 04/01/20 08:59 Last Admin: 04/01/20 10:00 Dose: 500 mg Documented by: Meropenem (Merrem) Confirm Administered Dose 500 mg .ROUTE .STK-MED ONE Stop: 04/01/20 10:20 Last Admin: 04/01/20 10:32 Dose: 500 mg Documented by: Neostigmine Methylsulfate (Neostigmine) Confirm Administered Dose 5 mg .ROUTE .STK-MED ONE Stop: 04/01/20 07:08 Ondansetron HCl (Zofran) Confirm Administered Dose 4 mg .ROUTE .STK-MED ONE Stop: 04/01/20 07:08 Pantoprazole Sodium (Protonix Iv) 40 mg IV Q12H [facility] Stop: 04/02/20 14:01 Last Admin: 04/02/20 14:10 Dose: 40 mg Documented by: Propofol (Diprivan 20 Ml) Confirm Administered Dose 200 mg .ROUTE .STK-MED ONE Stop: 04/01/20 07:08 Propranolol HCl (Inderal) 40 mg PO ONETIME ONE Stop: 04/01/20 06:23 Last Admin: 04/01/20 07:07 Dose: 40 mg Documented by: Rocuronium [place] (Zemuron) Confirm Administered Dose 50 mg .ROUTE .STK-MED ONE Stop: 04/01/20 07:08 Sodium Polystyrene Sulfonate (Kayexalate) 30 gm PO ONETIME ONE Stop: 04/02/20 11:01 Last Admin: 04/02/20 11:05 Dose: 30 gm Documented by: Succinylcholine Chloride (Quelicin) Confirm Administered Dose 200 mg .ROUTE .ST-MED ONE Stop: 04/01/20 07:08 - Exam Quality Assessment: Urine Catheter, DVT Prophylaxis General: Alert, Cooperative, Moderate Distress. No: Oriented Lungs: Clear to Auscultation, Normal Respiratory Effort Cardiovascular: Regular Rate, Regular Rhythm, Murmurs GI/Abdominal Exam: Soft, No Organomegaly, Tender. No: Distended, Guarding, Rigid, Rebound Extremities: Non-Tender, No Pedal Edema Sepsis Event Note - Evaluation Sepsis Screening Result: Sepsis Risk - Focused Exam Vital Signs: Vital Signs Temp Pulse Resp BP Pulse Ox 04/03/20 06:00 82 15 133/55 L 94 L 04/03/20 05:00 96.8 F L 84 16 116/43 L 92 L 04/03/20 04:00 90 12 130/40 L 93 L 04/03/20 03:00 97.3 F 89 16 121/53 L 95 04/03/20 02:00 88 17 128/48 L 93 L 04/03/20 01:00 90 13 117/43 L 94 L 04/03/20 00:00 91 13 119/43 L 96 04/02/20 23:00 92 13 113/39 L 92 L 04/02/20 22:00 103 H 24 H 112/67 93 L Consult PN Assessment/Plan Procedures: Procedures ASSAY OF TROPONIN QUANT (08/29/18) CARDIAC REHAB/MONITOR (11/30/18) CARDIOVASCULAR STRESS TEST (01/07/18) CARDIOVASCULAR STRESS TEST (01/07/18) CARDIOVASCULAR STRESS TEST (03/27/16) CARDIOVASCULAR STRESS TEST (03/27/16) CHEST X-RAY 1 VIEW FRONTAL (12/25/16) CHEST X-RAY 2VW FRONTAL&LATL (05/31/16) COMPLETE CBC AUTOMATED (08/29/18) COMPLETE CBC W/AUTO DIFF WBC (12/25/16) COMPREHEN METABOLIC PANEL (12/25/16) ELECTROCARDIOGRAM TRACING (08/29/18) EMERGENCY DEPT VISIT (08/29/18) EMERGENCY DEPT VISIT (05/31/16) EMERGENCY DEPT VISIT (05/07/15) EMERGENCY DEPT VISIT (05/07/15) FIBRIN DEGRADATION QUANT (08/29/18) HT MUSCLE IMAGE SPECT MULT (01/07/18) METABOLIC PANEL TOTAL CA (08/29/18) POLYSOM 6/> YRS 4/> WILLI (06/05/14) POLYSOM 6/>YRS CPAP 4/> PARM (08/19/14) ROUTINE VENIPUNCTURE (08/29/18) TTE F-UP OR LMTD (10/11/18) TTE W/DOPPLER COMPLETE (12/06/17) X-RAY EXAM CHEST 2 VIEWS (08/29/18) Problem List Initiated/Reviewed/Updated: Yes My Orders Last 24 Hours: My Active Orders 04/02/20 10:22 Consult to Physical Therapy [PT Evaluation and Treatment] [CONS] Routine 04/02/20 10:30 Norepinephrine [Levophed] 4 mg Dextrose 5% in Water 246 ml IV TITRATE Plan: ASSESSMENT AND RECOMMENDATIONS HYPOTENSION-resolved -IV fluids as needed -Continue current IV antibiotics pending culture results ACUTE KIDNEY INJURY-resolved -IV fluids as above -Maintain MAP greater than 65 -Closely monitor urine output and renal function HYPERKALEMIA-resolved STATUS POST SURGICAL PROCEDURE -Postoperative care per Dr. Nieto -Vigorous pulmonary toilet -Encourage activity
[2020-04-03] MEDS: Clopidogrel 75 MG Tab PO SCH (09:50)
[2020-04-03] MEDS: Isosorbide Mononitrate 30 MG Tab.ER PO SCH (09:57)
[2020-04-03] MEDS: Propranolol 40 MG Tab PO SCH ×2 (10:14→21:30)
[2020-04-03] MEDS: Aspirin 81 MG Tab.EC PO SCH (10:14)
[2020-04-03] MEDS: Furosemide 20 MG/2 ML VIAL IV SCH (10:15)
[2020-04-03] MEDS ORDERED: Norepinephrine 4 MG in Dextrose 5% in Water 246 ML IV PRN ×4 (10:38→11:00)
[2020-04-03] MEDS: Linezolid 600 MG in Premix Bag 1 BAG IV SCH ×2 (10:51→22:03)
[2020-04-03] MEDS: Pantoprazole 40 MG Vial IV SCH (14:36)
[2020-04-04] MEDS: Magnesium Sulfate/Water 2 GM in Premix Bag 1 BAG IV SCH ×4 (02:09→20:26)
[2020-04-04] MEDS: Meropenem 500 MG in Sodium Chloride 0.9% 50 ML IV SCH ×2 (02:13→14:53)
[2020-04-04] MEDS: HYDROmorphone/Normal Saline 15 MG/30 ML PCA IV PRN (04:33)
[2020-04-04] MEDS: LORazepam 2 MG/ML SDV IV PRN ×2 (05:37→20:28)
[2020-04-04] MEDS ORDERED: Meropenem 500 MG SDV ONE (06:41)
[2020-04-04] MEDS ORDERED: Propofol 200 MG/20 ML SDV ONE (07:15)
[2020-04-04] MEDS ORDERED: fentaNYL 100 MCG/2 ML SDV ONE (07:15)
[2020-04-04] MEDS ORDERED: Lidocaine 1% with EPINEPHrine 1:100,000 50 ML MDV ONE (07:28)
[2020-04-04] MEDS ORDERED: Bupivacaine 0.5% 50 ML MDV ONE (07:28)
[2020-04-04] MEDS ORDERED: Lactated Ringers 1,000 ML ONE (07:39)
--- NOTE | 2020-04-04 10:05 | PCM.CONSN ---
- General Info Date of Service: 04/04/20 Subjective Update: Mr. Arceo has been stable over the last 24 hours with no significant hemodynamic instability. Renal function has returned to baseline with adequate urine output. Functional Status: Reports: Tolerating Diet, Ambulating - Review of Systems General: Reports: Weakness, Fatigue. Denies: Fever, Chills Pulmonary: Reports: No Symptoms Cardiovascular: Reports: No Symptoms Gastrointestinal: Reports: Abdominal Pain. Denies: Difficulty Swallowing, Nausea, Vomiting - Patient Data Vitals - Most Recent: Last Vital Signs Temp 96.6 F L 04/04/20 08:45 Pulse 73 04/04/20 09:00 Resp 12 04/04/20 09:00 BP 130/61 04/04/20 09:00 Pulse Ox 95 04/04/20 09:00 Weight - Most Recent: 253 lb I&O - Last 24 Hours: Intake & Output 04/03/20 04/04/20 04/04/20 22:59 06:59 14:59 Intake Total 2080 1082 Output Total 652 415 Balance 1428 667 Lab Results Last 24 Hours: Laboratory Results - last 24 hr 04/04/20 04/04/20 04/04/20 Range/Units 05:30 05:30 05:30 WBC 15.8 H (4.5-11.0) K/uL RBC 2.95 L (4.30-5.90) M/uL Hgb 9.0 L (12.0-15.0) g/dL Hct 28.9 L (40.0-54.0) % MCV 98 (80-98) fL MCH 31 (27-31) pg MCHC 31 L (32-36) % Plt Count 296 (150-400) K/uL Sodium 134 L (140-148) mmol/L Potassium 4.2 (3.6-5.2) mmol/L Chloride 100 (100-108) mmol/L Carbon Dioxide 32 (21-32) mmol/L Anion Gap 6.2 (5.0-14.0) mmol/L BUN 13 (7-18) mg/dL Creatinine 0.8 (0.8-1.3) mg/dL Est Cr Clr Drug Dosing 77.63 mL/min Estimated GFR (MDRD) > 60 (>60) Glucose 114 H (74-106) mg/dL Calcium 7.5 L (8.5-10.1) mg/dL Phosphorus 1.3 L (2.5-4.9) mg/dL Magnesium 3.3 H (1.8-2.4) mg/dL Total Bilirubin 0.5 (0.2-1.0) mg/dL AST 24 (15-37) U/L ALT 21 (12-78) U/L Alkaline Phosphatase 129 H (46-116) U/L NT-Pro-B Natriuret Pep 1190 H (5-125) pg/mL Total Protein 6.0 L (6.4-8.2) g/dL Albumin 2.1 L (3.4-5.0) g/dL Globulin 3.9 H (2.3-3.5) g/dL Albumin/Globulin Ratio 0.5 L (1.2-2.2) Blood Type A POSITIVE Gel Antibody Screen Negative [place] Results Last 24 Hours: Microbiology 04/01/20 09:06 Gram Stain - Final Abdominal Fluid - Drainage Wound Culture - Final Viridans Streptococcus Viridans Streptococcus#2 Anaerobic Culture - Final NO GROWTH AFTER 3 DAYS Med Orders - Current: Current Medications Acetaminophen (Tylenol) 650 mg PO Q6H [facility] Alogliptin Benzoate (Alogliptin) 12.5 mg PO DAILY [facility] Last Admin: 04/03/20 10:14 Dose: 12.5 mg Documented by: Alvimopan (Entereg) 12 mg PO BID [facility] Stop: 04/08/20 21:01 Last Admin: 04/03/20 21:30 Dose: 12 mg Documented by: Aspirin (Halfprin) 81 mg PO DAILY [facility] Last Admin: 04/03/20 10:14 Dose: 81 mg Documented by: Bisacodyl (Dulcolax) 10 mg PO BID [facility] Clopidogrel Bisulfate (Plavix) 75 mg PO DAILY [facility] Last Admin: 04/03/20 09:50 Dose: 75 mg Documented by: Dextrose (Glutose 15) 15 gm PO ASDIRECTED PRN PRN Reason: HYPOGLYCEMIA Dextrose/Water (Dextrose 50% In Water) 50 ml IVPUSH ASDIRECTED PRN PRN Reason: HYPOGLYCEMIA Docusate Sodium (Colace) 100 mg PO BID [facility] Furosemide (Lasix) 20 mg IV DAILY [facility] Last Admin: 04/03/20 10:15 Dose: 20 mg Documented by: Furosemide (Lasix) 20 mg IV ONETIME ONE Stop: 04/04/20 14:01 Glucagon (Glucagen) 1 mg IM ASDIRECTED PRN PRN Reason: HYPOGLYCEMIA Hydromorphone HCl (Dilaudid [employer] 15 Mg In Ns 30 Ml) 0 mg IV ASDIRECTED PRN; Protocol PRN Reason: Pain Last Admin: 04/04/20 04:33 Dose: 15 mg Documented by: Hydroxyzine HCl (Vistaril) 100 mg IM Q4H PRN PRN Reason: PAIN Magnesium Sulfate 2 gm/ Premix 50 mls @ 25 mls/hr IV Q6H [facility] Stop: 04/05/20 03:59 Last Admin: 04/04/20 02:09 Dose: 25 mls/hr Documented by: Ceftriaxone Sodium 2 gm/ (Sodium Chloride) 50 mls @ 100 mls/hr IV Q24H [facility] Insulin Human Lispro (Humalog) 0 unit SUBCUT Q6H PRN; Protocol PRN Reason: MEDIUM CORRECTIONAL DOSING Last Admin: 04/03/20 23:17 Dose: 2 units Documented by: Isosorbide Mononitrate (Imdur) 60 mg PO DAILY [facility] Last Admin: 04/03/20 09:57 Dose: 60 mg Documented by: Lactobacillus Rhamnosus (Culturelle) 1 cap PO BID [facility] Lisinopril (Prinivil) 2.5 mg PO DAILY [facility] Last Admin: 04/03/20 09:10 Dose: 2.5 mg Documented by: Lorazepam (Ativan) 0.25 mg IV Q6H PRN PRN Reason: ANXIETY Last Admin: 04/04/20 05:37 Dose: 0.25 mg Documented by: Metformin HCl (Glucophage) 1,000 mg PO BIDMEALS [facility] Last Admin: 04/03/20 16:04 Dose: 1,000 mg Documented by: Naloxone HCl (Narcan) 0.1 mg IVPUSH Q2M PRN PRN Reason: Respiratory Distress Nitroglycerin (Nitrostat) 0.4 mg SL ASDIRECTED PRN PRN Reason: CHEST PAIN Ondansetron HCl (Zofran) 4 mg IVPUSH Q4H PRN PRN Reason: Nausea Pantoprazole Sodium (Protonix Iv) 40 mg IV Q24H [facility] Last Admin: 04/03/20 14:36 Dose: 40 mg Documented by: Propranolol HCl (Inderal) 40 mg PO BID [facility] Last Admin: 04/03/20 21:30 Dose: 40 mg Documented by: Discontinued Medications Acetaminophen (Tylenol Extra Strength) 1,000 mg PO ONETIME ONE Stop: 04/01/20 06:31 Last Admin: 04/01/20 06:23 Dose: 1,000 mg Documented by: Bupivacaine HCl (Marcaine 0.5%) Confirm Administered Dose 50 ml .ROUTE .STK-MED ONE Stop: 04/04/20 07:29 Last Admin: 04/04/20 07:42 Dose: 20 ml Documented by: Bupivacaine HCl/Epinephrine Bitart (Marcaine 0.5%/Epinephrine 1:200,000) Confirm Administered Dose 50 ml .ROUTE .STK-MED ONE Stop: 04/01/20 06:59 Last Admin: 04/01/20 11:15 Dose: 50 ml Documented by: Ropivacaine 59 ml/Dexamethasone 8 mg/Epinephrine HCl 0.4 mg/ Sodium Chloride 18.6 ml 0 ml NERVRT ASDIRECTED [facility] Last Admin: 04/01/20 08:45 Dose: 80 syringe Documented by: Ropivacaine 59 ml/Dexamethasone 8 mg/Epinephrine HCl 0.4 mg/ Sodium Chloride 18.6 ml 0 ml NERVRT ASDIRECTED [facility] Last Admin: 04/04/20 07:42 Dose: 80 syringe Documented by: Dexamethasone (Dexamethasone) Confirm Administered Dose 4 mg .ROUTE .STK-MED ONE Stop: 04/01/20 07:08 Fentanyl (Sublimaze) Confirm Administered Dose 250 mcg .ROUTE .STK-MED ONE Stop: 04/01/20 07:08 Fentanyl (Sublimaze) Confirm Administered Dose 250 mcg .ROUTE .STK-MED ONE Stop: 04/01/20 09:09 Fentanyl (Sublimaze) Confirm Administered Dose 100 mcg .ROUTE .STK-MED ONE Stop: 04/04/20 07:16 Furosemide (Lasix) 20 mg IVPUSH ONETIME ONE Stop: 04/02/20 19:02 Last Admin: 04/02/20 20:55 Dose: 20 mg Documented by: Glycopyrrolate (Robinul) Confirm Administered Dose 1 mg .ROUTE .STK-MED ONE Stop: 04/01/20 07:08 Cefoxitin Sodium 2 gm/ Sodium (Chloride) 50 mls @ 100 mls/hr IV ONETIME ONE Stop: 04/01/20 06:59 Last Admin: 04/01/20 08:13 Dose: 100 mls/hr Documented by: Dextrose/Lactated Ringer's (Dextrose 5%-Lactated Ringers) 1,000 mls @ 100 mls/hr IV ASDIRECTED [facility] Last Admin: 04/01/20 07:22 Dose: 100 mls/hr Documented by: Lactated Ringer's (Ringers, Lactated) Confirm Administered Dose 1,000 mls @ as directed .ROUTE .[facility] ONE Stop: 04/01/20 09:59 Linezolid (Zyvox) Confirm Administered Dose 300 mls @ as directed .ROUTE .[facility] ONE Stop: 04/01/20 10:06 Linezolid (Zyvox) Confirm Administered Dose 300 mls @ as directed .ROUTE .[facility] ONE Stop: 04/01/20 10:07 Linezolid 600 mg/ Premix 300 mls @ 300 mls/hr IV ONETIME ONE Stop: 04/01/20 11:19 Last Admin: 04/01/20 10:17 Dose: 300 mls/hr Documented by: Sodium Chloride (Normal Saline) Confirm Administered Dose 10 mls @ as directed .ROUTE .[facility] ONE Stop: 04/01/20 10:20 Dextrose/Lactated Ringer's (Dextrose 5%-Lactated Ringers) 1,000 mls @ 25 mls/hr IV ASDIRECTED [facility] Lactated Ringer's (Ringers, Lactated) 1,000 mls @ 125 mls/hr IV ASDIRECTED [facility] Last Admin: 04/02/20 00:00 Dose: 125 mls/hr Documented by: Dextrose/Lactated Ringer's (Dextrose 5%-Lactated Ringers) 1,000 mls @ 75 mls/hr IV ASDIRECTED [facility] Last Admin: 04/02/20 02:15 Dose: 75 mls/hr Documented by: Linezolid 600 mg/ Premix 300 mls @ 300 mls/hr IV Q12H [facility] Last Admin: 04/03/20 22:03 Dose: 300 mls/hr Documented by: Meropenem 500 mg/ Sodium (Chloride) 50 mls @ 100 mls/hr IV Q6H [facility] Last Admin: 04/04/20 02:13 Dose: 100 mls/hr Documented by: Lactated Ringer's (Ringers, Lactated) 500 mls @ 500 mls/hr IV .[facility] ONE Stop: 04/01/20 17:44 Last Admin: 04/01/20 16:51 Dose: 500 mls/hr Documented by: Lactated Ringer's (Ringers, Lactated) 500 mls @ 500 mls/hr IV ASDIRECTED [facility] Last Admin: 04/02/20 02:22 Dose: 500 mls/hr Documented by: Lactated Ringer's (Ringers, Lactated) 500 mls @ 500 mls/hr IV ASDIRECTED [facility] Stop: 04/02/20 03:14 Sodium Chloride (Normal Saline) 500 mls @ 500 mls/hr IV .[facility]OL[facility] ONE Stop: 04/02/20 07:30 Last Admin: 04/02/20 06:55 Dose: 500 mls/hr Documented by: Sodium Chloride (Normal Saline) 1,000 mls @ 175 mls/hr IV ASDIRECTED [facility] Last Admin: 04/03/20 03:01 Dose: 175 mls/hr Documented by: Norepinephrine Bitartrate 4 mg (/ Dextrose/Water) 250 mls @ 7.5 mls/hr IV TITRATE [facility]AY; Protocol Sodium Chloride (Normal Saline) 1,000 mls @ 100 mls/hr IV ASDIRECTED [facility] Last Admin: 04/03/20 23:12 Dose: 100 mls/hr Documented by: Norepinephrine Bitartrate 4 mg (/ Dextrose/Water) 250 mls @ 7.5 mls/hr IV TITRATE PRN; Protocol PRN Reason: INCREASE PULSE Norepinephrine Bitartrate 4 mg (/ Dextrose/Water) 250 mls @ 7.5 mls/hr IV TITRATE PRN; Protocol PRN Reason: INCREASE PULSE Lactated Ringer's (Ringers, Lactated) Confirm Administered Dose 1,000 mls @ as directed .ROUTE .STK-MED ONE Stop: 04/04/20 07:40 Isosorbide Mononitrate (Imdur) 60 mg PO ONETIME ONE Stop: 04/01/20 06:21 Last Admin: 04/01/20 07:08 Dose: 60 mg Documented by: Lidocaine/Epinephrine (Xylocaine 1% With Epinephrine 1:100,000) Confirm Administered Dose 50 ml .ROUTE .STK-MED ONE Stop: 04/04/20 07:29 Last Admin: 04/04/20 07:42 Dose: 20 ml Documented by: Linezolid (Zyvox) 600 mg IRR .STK-MED ONE Stop: 04/01/20 10:01 Last Admin: 04/01/20 10:00 Dose: 600 mg Documented by: Linezolid (Zyvox) 600 mg IRR .STK-MED ONE Stop: 04/01/20 10:33 Last Admin: 04/01/20 10:32 Dose: 600 mg Documented by: Meropenem (Merrem) Confirm Administered Dose 500 mg .ROUTE .STK-MED ONE Stop: 04/01/20 08:59 Last Admin: 04/01/20 10:00 Dose: 500 mg Documented by: Meropenem (Merrem) Confirm Administered Dose 500 mg .ROUTE .STK-MED ONE Stop: 04/01/20 10:20 Last Admin: 04/01/20 10:32 Dose: 500 mg Documented by: Meropenem (Merrem) Confirm Administered Dose 500 mg .ROUTE .ST-MED ONE Stop: 04/04/20 06:42 Last Admin: 04/04/20 07:44 Dose: 500 mg Documented by: Neostigmine Methylsulfate (Neostigmine) Confirm Administered Dose 5 mg .ROUTE .STK-MED ONE Stop: 04/01/20 07:08 Ondansetron HCl (Zofran) Confirm Administered Dose 4 mg .ROUTE .STK-MED ONE Stop: 04/01/20 07:08 Pantoprazole Sodium (Protonix Iv) 40 mg IV Q12H [facility] Stop: 04/02/20 14:01 Last Admin: 04/02/20 14:10 Dose: 40 mg Documented by: Propofol (Diprivan 20 Ml) Confirm Administered Dose 200 mg .ROUTE .STK-MED ONE Stop: 04/01/20 07:08 Propofol (Diprivan 20 Ml) Confirm Administered Dose 200 mg .ROUTE .STK-MED ONE Stop: 04/04/20 07:16 Propranolol HCl (Inderal) 40 mg PO ONETIME ONE Stop: 04/01/20 06:23 Last Admin: 04/01/20 07:07 Dose: 40 mg Documented by: Rocuronium [place] (Zemuron) Confirm Administered Dose 50 mg .ROUTE .STK-MED ONE Stop: 04/01/20 07:08 Sodium Polystyrene Sulfonate (Kayexalate) 30 gm PO ONETIME ONE Stop: 04/02/20 11:01 Last Admin: 04/02/20 11:05 Dose: 30 gm Documented by: Succinylcholine Chloride (Quelicin) Confirm Administered Dose 200 mg .ROUTE .STK-MED ONE Stop: 04/01/20 07:08 - Exam Quality Assessment: DVT Prophylaxis General: Alert, Cooperative, Mild Distress Lungs: Clear to Auscultation, Normal Respiratory Effort Cardiovascular: Regular Rate, Regular Rhythm, No Murmurs GI/Abdominal Exam: Soft, No Organomegaly, Tender. No: Distended, Guarding, Rigid, Rebound Extremities: Non-Tender, Pedal Edema Skin: Warm, Dry Sepsis Event Note - Evaluation Sepsis Screening Result: No Definite Risk - Focused Exam Vital Signs: Vital Signs Temp Pulse Resp BP Pulse Ox 04/04/20 09:00 73 12 130/61 95 04/04/20 08:45 96.6 F L 75 16 131/59 L 96 04/04/20 08:20 96.8 F L 71 14 156/68 H 96 04/04/20 08:15 72 14 156/66 H 98 04/04/20 08:10 67 12 160/83 H 99 04/04/20 08:05 71 12 176/74 H 98 04/04/20 08:00 96.6 F L 68 12 169/68 H 99 04/04/20 06:00 75 12 104/66 98 04/04/20 05:00 73 17 124/56 L 92 L 04/04/20 04:00 63 11 L 124/50 L 97 04/04/20 03:00 69 16 120/56 L 97 04/04/20 02:00 73 13 130/59 L 97 04/04/20 01:00 71 13 138/65 97 04/04/20 00:00 98.2 F 72 14 112/54 L 98 04/03/20 23:00 76 16 140/69 95 Consult PN Assessment/Plan Procedures: Procedures ASSAY OF TROPONIN QUANT (08/29/18) CARDIAC REHAB/MONITOR (11/30/18) CARDIOVASCULAR STRESS TEST (01/07/18) CARDIOVASCULAR STRESS TEST (01/07/18) CARDIOVASCULAR STRESS TEST (03/27/16) CARDIOVASCULAR STRESS TEST (03/27/16) CHEST X-RAY 1 VIEW FRONTAL (12/25/16) CHEST X-RAY 2VW FRONTAL&LATL (05/31/16) COMPLETE CBC AUTOMATED (08/29/18) COMPLETE CBC W/AUTO DIFF WBC (12/25/16) COMPREHEN METABOLIC PANEL (12/25/16) ELECTROCARDIOGRAM TRACING (08/29/18) EMERGENCY DEPT VISIT (08/29/18) EMERGENCY DEPT VISIT (05/31/16) EMERGENCY DEPT VISIT (05/07/15) EMERGENCY DEPT VISIT (05/07/15) FIBRIN DEGRADATION QUANT (08/29/18) HT MUSCLE IMAGE SPECT MULT (01/07/18) METABOLIC PANEL TOTAL CA (08/29/18) POLYSOM 6/> YRS 4/> WILLI (06/05/14) POLYSOM 6/>YRS CPAP 4/> PARM (08/19/14) ROUTINE VENIPUNCTURE (08/29/18) TTE F-UP OR LMTD (10/11/18) TTE W/DOPPLER COMPLETE (12/06/17) X-RAY EXAM CHEST 2 VIEWS (08/29/18) Problem List Initiated/Reviewed/Updated: Yes My Orders Last 24 Hours: My Active Orders 04/04/20 09:59 Convert IV to Saline Lock [OM.PC] Routine 04/04/20 10:00 Lactobacillus Rhamnosus GG [Culturelle] 1 cap PO BID cefTRIAXone [Rocephin] 2 gm Sodium Chloride 0.9% [Normal Saline] 50 ml IV Q24H Plan: ASSESSMENT AND RECOMMENDATIONS HYPOTENSION-resolved, surgical cultures are growing strep viridans -Saline lock IV -Discontinue Zyvox and meropenem -Ceftriaxone 2 g IV every 24 hours ACUTE KIDNEY INJURY-resolved -Closely monitor urine output and renal function HYPERKALEMIA-resolved STATUS POST SURGICAL PROCEDURE-renal function has stabilized, tolerating current diet, stable vital signs -Postoperative care per Dr. Nieto -Saline lock IV -Vigorous pulmonary toilet -Encourage activity
[2020-04-04] MEDS: metFORMIN 500 MG Tab PO SCH ×2 (10:15→17:52)
[2020-04-04] MEDS: Furosemide 20 MG/2 ML VIAL IV SCH (10:21)
[2020-04-04] MEDS: Aspirin 81 MG Tab.EC PO SCH (10:33)
[2020-04-04] MEDS: Isosorbide Mononitrate 30 MG Tab.ER PO SCH (10:34)
[2020-04-04] MEDS: Propranolol 40 MG Tab PO SCH ×2 (10:35→20:27)
[2020-04-04] MEDS: Lisinopril 2.5 MG Tab PO SCH (10:36)
[2020-04-04] MEDS: Acetaminophen 325 MG Tab PO SCH ×3 (10:36→22:05)
[2020-04-04] MEDS: Lactobacillus Rhamnosus GG (Probiotic) Cap PO SCH ×2 (10:37→20:26)
[2020-04-04] MEDS: Clopidogrel 75 MG Tab PO SCH (10:41)
[2020-04-04] MEDS: cefTRIAXone 2 GM in Sodium Chloride 0.9% 50 ML IV SCH (10:53)
[2020-04-04] MEDS: Bisacodyl 5 MG Tab PO SCH ×2 (13:10→20:26)
[2020-04-04] MEDS: Docusate Sodium 100 MG Cap PO SCH ×2 (13:10→20:26)
[2020-04-04] MEDS ORDERED: Furosemide 20 MG/2 ML VIAL IV ONE (14:00)
[2020-04-04] MEDS: Pantoprazole 40 MG Vial IV SCH (14:54)
[2020-04-04] MEDS: Insulin Lispro 100 Unit/ML 3 ML KwikPen SUBCUT PRN (17:53)
[2020-04-05] MEDS: Acetaminophen 325 MG Tab PO SCH ×4 (03:36→21:00)
[2020-04-05] MEDS: Magnesium Sulfate/Water 2 GM in Premix Bag 1 BAG IV SCH (03:36)
[2020-04-05] MEDS: Insulin Lispro 100 Unit/ML 3 ML KwikPen SUBCUT PRN ×3 (05:17→17:05)
[2020-04-05] MEDS: Furosemide 20 MG/2 ML VIAL IV SCH (09:30)
[2020-04-05] MEDS: Propranolol 40 MG Tab PO SCH ×2 (10:06→21:00)
[2020-04-05] MEDS: Aspirin 81 MG Tab.EC PO SCH (10:06)
[2020-04-05] MEDS: Lactobacillus Rhamnosus GG (Probiotic) Cap PO SCH ×2 (10:06→21:00)
[2020-04-05] MEDS: Docusate Sodium 100 MG Cap PO SCH ×2 (10:07→21:02)
[2020-04-05] MEDS: metFORMIN 500 MG Tab PO SCH ×2 (10:07→17:01)
[2020-04-05] MEDS: Isosorbide Mononitrate 30 MG Tab.ER PO SCH (10:07)
[2020-04-05] MEDS: Clopidogrel 75 MG Tab PO SCH (10:07)
[2020-04-05] MEDS: Lisinopril 2.5 MG Tab PO SCH (10:08)
--- NOTE | 2020-04-05 10:33 | PCM.CONSN ---
- General Info Date of Service: 04/05/20 Subjective Update: Mr. Arceo has remained stable over the past 24 hours and has shown continued improvement. Renal function and potassium level have stabilized. He is tolerating a full liquid diet which will be advanced today and has had a bowel movement. Overall energy level and activity are improving. Functional Status: Reports: Tolerating Diet, Ambulating - Review of Systems General: Reports: No Symptoms Pulmonary: Reports: No Symptoms Cardiovascular: Reports: No Symptoms Gastrointestinal: Reports: Abdominal Pain. Denies: Difficulty Swallowing, Hematochezia, Melena, Nausea, Vomiting - Patient Data Vitals - Most Recent: Last Vital Signs Temp 95.3 F L 04/05/20 09:53 Pulse 60 04/05/20 06:00 Resp 16 04/05/20 09:53 BP 136/60 04/05/20 10:08 Pulse Ox 96 04/05/20 06:00 Weight - Most Recent: 253 lb I&O - Last 24 Hours: Intake & Output 04/04/20 04/05/20 04/05/20 22:59 06:59 14:59 Intake Total 1591 378 240 Output Total 820 770 Balance 771 -392 240 Lab Results Last 24 Hours: Laboratory Results - last 24 hr 04/02/20 04/04/20 04/05/20 Range/Units 05:45 05:30 04:00 WBC 12.9 H (4.5-11.0) K/uL RBC 2.95 L (4.30-5.90) M/uL Hgb 9.0 L (12.0-15.0) g/dL Hct 29.1 L (40.0-54.0) % MCV 99 H (80-98) fL MCH 31 (27-31) pg MCHC 31 L (32-36) % Plt Count 303 (150-400) K/uL Sodium (140-148) mmol/L Potassium (3.6-5.2) mmol/L Chloride (100-108) mmol/L Carbon Dioxide (21-32) mmol/L Anion Gap (5.0-14.0) mmol/L BUN (7-18) mg/dL Creatinine (0.8-1.3) mg/dL Est Cr Clr Drug Dosing mL/min Estimated GFR (MDRD) (>60) Glucose (74-106) mg/dL Calcium (8.5-10.1) mg/dL Phosphorus (2.5-4.9) mg/dL Magnesium (1.8-2.4) mg/dL Total Bilirubin (0.2-1.0) mg/dL AST (15-37) U/L ALT (12-78) U/L Alkaline Phosphatase (46-116) U/L NT-Pro-B Natriuret Pep (5-125) pg/mL Total Protein (6.4-8.2) g/dL Albumin (3.4-5.0) g/dL Globulin (2.3-3.5) g/dL Albumin/Globulin Ratio (1.2-2.2) Blood Type A POSITIVE Gel Antibody Screen Negative Crossmatch See Detail See Detail 04/05/20 Range/Units 04:00 WBC (4.5-11.0) K/uL RBC (4.30-5.90) M/uL Hgb (12.0-15.0) g/dL Hct (40.0-54.0) % MCV (80-98) fL MCH (27-31) pg MCHC (32-36) % Plt Count (150-400) K/uL Sodium 136 L (140-148) mmol/L Potassium 4.5 (3.6-5.2) mmol/L Chloride 100 (100-108) mmol/L Carbon Dioxide 33 H (21-32) mmol/L Anion Gap 7.5 (5.0-14.0) mmol/L BUN 18 (7-18) mg/dL Creatinine 1.1 (0.8-1.3) mg/dL Est Cr Clr Drug Dosing 56.46 mL/min Estimated GFR (MDRD) > 60 (>60) Glucose 160 H (74-106) mg/dL Calcium 7.7 L (8.5-10.1) mg/dL Phosphorus 2.4 L (2.5-4.9) mg/dL Magnesium 3.3 H (1.8-2.4) mg/dL Total Bilirubin 0.4 (0.2-1.0) mg/dL AST 18 (15-37) U/L ALT 19 (12-78) U/L Alkaline Phosphatase 127 H (46-116) U/L NT-Pro-B Natriuret Pep 807 H (5-125) pg/mL Total Protein 6.1 L (6.4-8.2) g/dL Albumin 2.0 L (3.4-5.0) g/dL Globulin 4.1 H (2.3-3.5) g/dL Albumin/Globulin Ratio 0.5 L (1.2-2.2) Blood Type Gel Antibody Screen Crossmatch [place] Results Last 24 Hours: Microbiology 04/01/20 09:06 Gram Stain - Final Abdominal Fluid - Drainage Wound Culture - Final Viridans Streptococcus Viridans Streptococcus#2 Anaerobic Culture - Final NO GROWTH AFTER 3 DAYS Med Orders - Current: Current Medications Acetaminophen (Tylenol) 650 mg PO Q6H [facility] Last Admin: 04/05/20 10:06 Dose: 650 mg Documented by: Alogliptin Benzoate (Alogliptin) 12.5 mg PO DAILY [facility] Last Admin: 04/05/20 10:07 Dose: 12.5 mg Documented by: Alvimopan (Entereg) 12 mg PO BID [facility] Stop: 04/08/20 21:01 Last Admin: 04/05/20 10:08 Dose: 12 mg Documented by: Aspirin (Halfprin) 81 mg PO DAILY [facility] Last Admin: 04/05/20 10:06 Dose: 81 mg Documented by: Clopidogrel Bisulfate (Plavix) 75 mg PO DAILY [facility] Last Admin: 04/05/20 10:07 Dose: 75 mg Documented by: Dextrose (Glutose 15) 15 gm PO ASDIRECTED PRN PRN Reason: HYPOGLYCEMIA Dextrose/Water (Dextrose 50% In Water) 50 ml IVPUSH ASDIRECTED PRN PRN Reason: HYPOGLYCEMIA Docusate Sodium (Colace) 100 mg PO BID [facility] Last Admin: 04/05/20 10:07 Dose: 100 mg Documented by: Furosemide (Lasix) 20 mg IV DAILY [facility] Last Admin: 04/05/20 09:30 Dose: 20 mg Documented by: Furosemide (Lasix) 20 mg IV ONETIME ONE Stop: 04/05/20 14:01 Glucagon (Glucagen) 1 mg IM ASDIRECTED PRN PRN Reason: HYPOGLYCEMIA Hydromorphone HCl (Dilaudid [employer] 15 Mg In Ns 30 Ml) 0 mg IV ASDIRECTED PRN; Protocol PRN Reason: Pain Last Admin: 04/04/20 04:33 Dose: 15 mg Documented by: Hydroxyzine HCl (Vistaril) 100 mg IM Q4H PRN PRN Reason: PAIN Ceftriaxone Sodium 2 gm/ (Sodium Chloride) 50 mls @ 100 mls/hr IV Q24H [facility] Last Admin: 04/04/20 10:53 Dose: 100 mls/hr Documented by: Insulin Human Lispro (Humalog) 0 unit SUBCUT Q6H PRN; Protocol PRN Reason: MEDIUM CORRECTIONAL DOSING Last Admin: 04/05/20 05:17 Dose: 2 units Documented by: Isosorbide Mononitrate (Imdur) 60 mg PO DAILY [facility] Last Admin: 04/05/20 10:07 Dose: 60 mg Documented by: Lactobacillus Rhamnosus (Culturelle) 1 cap PO BID [facility] Last Admin: 04/05/20 10:06 Dose: 1 cap Documented by: Lisinopril (Prinivil) 2.5 mg PO DAILY [facility] Last Admin: 04/05/20 10:08 Dose: 2.5 mg Documented by: Lorazepam (Ativan) 0.25 mg IV Q6H PRN PRN Reason: ANXIETY Last Admin: 04/04/20 20:28 Dose: 0.25 mg Documented by: Metformin HCl (Glucophage) 1,000 mg PO BIDMEALS [facility] Last Admin: 04/05/20 10:07 Dose: 1,000 mg Documented by: Naloxone HCl (Narcan) 0.1 mg IVPUSH Q2M PRN PRN Reason: Respiratory Distress Nitroglycerin (Nitrostat) 0.4 mg SL ASDIRECTED PRN PRN Reason: CHEST PAIN Ondansetron HCl (Zofran) 4 mg IVPUSH Q4H PRN PRN Reason: Nausea Pantoprazole Sodium (Protonix Iv) 40 mg IV Q24H [facility] Last Admin: 04/04/20 14:54 Dose: 40 mg Documented by: Propranolol HCl (Inderal) 40 mg PO BID [facility] Last Admin: 04/05/20 10:06 Dose: 40 mg Documented by: Discontinued Medications Acetaminophen (Tylenol Extra Strength) 1,000 mg PO ONETIME ONE Stop: 04/01/20 06:31 Last Admin: 04/01/20 06:23 Dose: 1,000 mg Documented by: Bisacodyl (Dulcolax) 10 mg PO BID [facility] Last Admin: 04/04/20 20:26 Dose: 10 mg Documented by: Bupivacaine HCl (Marcaine 0.5%) Confirm Administered Dose 50 ml .ROUTE .STK-MED ONE Stop: 04/04/20 07:29 Last Admin: 04/04/20 07:42 Dose: 20 ml Documented by: Bupivacaine HCl/Epinephrine Bitart (Marcaine 0.5%/Epinephrine 1:200,000) Confirm Administered Dose 50 ml .ROUTE .STK-MED ONE Stop: 04/01/20 06:59 Last Admin: 04/01/20 11:15 Dose: 50 ml Documented by: Ropivacaine 59 ml/Dexamethasone 8 mg/Epinephrine HCl 0.4 mg/ Sodium Chloride 18.6 ml 0 ml NERVRT ASDIRECTED [facility] Last Admin: 04/01/20 08:45 Dose: 80 syringe Documented by: Ropivacaine 59 ml/Dexamethasone 8 mg/Epinephrine HCl 0.4 mg/ Sodium Chloride 18.6 ml 0 ml NERVRT ASDIRECTED [facility] Last Admin: 04/04/20 07:42 Dose: 80 syringe Documented by: Dexamethasone (Dexamethasone) Confirm Administered Dose 4 mg .ROUTE .STK-MED ONE Stop: 04/01/20 07:08 Fentanyl (Sublimaze) Confirm Administered Dose 250 mcg .ROUTE .STK-MED ONE Stop: 04/01/20 07:08 Fentanyl (Sublimaze) Confirm Administered Dose 250 mcg .ROUTE .STK-MED ONE Stop: 04/01/20 09:09 Fentanyl (Sublimaze) Confirm Administered Dose 100 mcg .ROUTE .STK-MED ONE Stop: 04/04/20 07:16 Furosemide (Lasix) 20 mg IVPUSH ONETIME ONE Stop: 04/02/20 19:02 Last Admin: 04/02/20 20:55 Dose: 20 mg Documented by: Furosemide (Lasix) 20 mg IV ONETIME ONE Stop: 04/04/20 14:01 Last Admin: 04/04/20 14:50 Dose: 20 mg Documented by: Glycopyrrolate (Robinul) Confirm Administered Dose 1 mg .ROUTE .STK-MED ONE Stop: 04/01/20 07:08 Cefoxitin Sodium 2 gm/ Sodium (Chloride) 50 mls @ 100 mls/hr IV ONETIME ONE Stop: 04/01/20 06:59 Last Admin: 04/01/20 08:13 Dose: 100 mls/hr Documented by: Dextrose/Lactated Ringer's (Dextrose 5%-Lactated Ringers) 1,000 mls @ 100 mls/hr IV ASDIRECTED [facility] Last Admin: 04/01/20 07:22 Dose: 100 mls/hr Documented by: Lactated Ringer's (Ringers, Lactated) Confirm Administered Dose 1,000 mls @ as directed .ROUTE .[facility] ONE Stop: 04/01/20 09:59 Linezolid (Zyvox) Confirm Administered Dose 300 mls @ as directed .ROUTE .[facility] ONE Stop: 04/01/20 10:06 Linezolid (Zyvox) Confirm Administered Dose 300 mls @ as directed .ROUTE .[facility] ONE Stop: 04/01/20 10:07 Linezolid 600 mg/ Premix 300 mls @ 300 mls/hr IV ONETIME ONE Stop: 04/01/20 11:19 Last Admin: 04/01/20 10:17 Dose: 300 mls/hr Documented by: Sodium Chloride (Normal Saline) Confirm Administered Dose 10 mls @ as directed .ROUTE .[facility] ONE Stop: 04/01/20 10:20 Dextrose/Lactated Ringer's (Dextrose 5%-Lactated Ringers) 1,000 mls @ 25 mls/hr IV ASDIRECTED [facility] Lactated Ringer's (Ringers, Lactated) 1,000 mls @ 125 mls/hr IV ASDIRECTED [facility] Last Admin: 04/02/20 00:00 Dose: 125 mls/hr Documented by: Dextrose/Lactated Ringer's (Dextrose 5%-Lactated Ringers) 1,000 mls @ 75 mls/hr IV ASDIRECTED [facility] Last Admin: 04/02/20 02:15 Dose: 75 mls/hr Documented by: Linezolid 600 mg/ Premix 300 mls @ 300 mls/hr IV Q12H [facility] Last Admin: 04/03/20 22:03 Dose: 300 mls/hr Documented by: Meropenem 500 mg/ Sodium (Chloride) 50 mls @ 100 mls/hr IV Q6H [facility] Last Admin: 04/04/20 14:53 Dose: Not Given Documented by: Lactated Ringer's (Ringers, Lactated) 500 mls @ 500 mls/hr IV .BOLUS ONE Stop: 04/01/20 17:44 Last Admin: 04/01/20 16:51 Dose: 500 mls/hr Documented by: Lactated Ringer's (Ringers, Lactated) 500 mls @ 500 mls/hr IV ASDIRECTED [facility] Last Admin: 04/02/20 02:22 Dose: 500 mls/hr Documented by: Lactated Ringer's (Ringers, Lactated) 500 mls @ 500 mls/hr IV ASDIRECTED [facility] Stop: 04/02/20 03:14 Sodium Chloride (Normal Saline) 500 mls @ 500 mls/hr IV .BOLUS ONE Stop: 04/02/20 07:30 Last Admin: 04/02/20 06:55 Dose: 500 mls/hr Documented by: Sodium Chloride (Normal Saline) 1,000 mls @ 175 mls/hr IV ASDIRECTED [facility] Last Admin: 04/03/20 03:01 Dose: 175 mls/hr Documented by: Magnesium Sulfate 2 gm/ Premix 50 mls @ 25 mls/hr IV Q6H [facility] Stop: 04/05/20 03:59 Last Admin: 04/05/20 03:36 Dose: 25 mls/hr Documented by: Norepinephrine Bitartrate 4 mg (/ Dextrose/Water) 250 mls @ 7.5 mls/hr IV TITRATE [facility]AY; Protocol Sodium Chloride (Normal Saline) 1,000 mls @ 100 mls/hr IV ASDIRECTED [facility] Last Admin: 04/03/20 23:12 Dose: 100 mls/hr Documented by: Norepinephrine Bitartrate 4 mg (/ Dextrose/Water) 250 mls @ 7.5 mls/hr IV TITRATE PRN; Protocol PRN Reason: INCREASE PULSE Norepinephrine Bitartrate 4 mg (/ Dextrose/Water) 250 mls @ 7.5 mls/hr IV TITRATE PRN; Protocol PRN Reason: INCREASE PULSE Lactated Ringer's (Ringers, Lactated) Confirm Administered Dose 1,000 mls @ as directed .ROUTE .STK-MED ONE Stop: 04/04/20 07:40 Isosorbide Mononitrate (Imdur) 60 mg PO ONETIME ONE Stop: 04/01/20 06:21 Last Admin: 04/01/20 07:08 Dose: 60 mg Documented by: Lidocaine/Epinephrine (Xylocaine 1% With Epinephrine 1:100,000) Confirm Administered Dose 50 ml .ROUTE .STK-MED ONE Stop: 04/04/20 07:29 Last Admin: 04/04/20 07:42 Dose: 20 ml Documented by: Linezolid (Zyvox) 600 mg IRR .STK-MED ONE Stop: 04/01/20 10:01 Last Admin: 04/01/20 10:00 Dose: 600 mg Documented by: Linezolid (Zyvox) 600 mg IRR .STK-MED ONE Stop: 04/01/20 10:33 Last Admin: 04/01/20 10:32 Dose: 600 mg Documented by: Meropenem (Merrem) Confirm Administered Dose 500 mg .ROUTE .STK-MED ONE Stop: 04/01/20 08:59 Last Admin: 04/01/20 10:00 Dose: 500 mg Documented by: Meropenem (Merrem) Confirm Administered Dose 500 mg .ROUTE .STK-MED ONE Stop: 04/01/20 10:20 Last Admin: 04/01/20 10:32 Dose: 500 mg Documented by: Meropenem (Merrem) Confirm Administered Dose 500 mg .ROUTE .STK-MED ONE Stop: 04/04/20 06:42 Last Admin: 04/04/20 07:44 Dose: 500 mg Documented by: Neostigmine Methylsulfate (Neostigmine) Confirm Administered Dose 5 mg .ROUTE .STK-MED ONE Stop: 04/01/20 07:08 Ondansetron HCl (Zofran) Confirm Administered Dose 4 mg .ROUTE .STK-MED ONE Stop: 04/01/20 07:08 Pantoprazole Sodium (Protonix Iv) 40 mg IV Q12H [facility] Stop: 04/02/20 14:01 Last Admin: 04/02/20 14:10 Dose: 40 mg Documented by: Propofol (Diprivan 20 Ml) Confirm Administered Dose 200 mg .ROUTE .STK-MED ONE Stop: 04/01/20 07:08 Propofol (Diprivan 20 Ml) Confirm Administered Dose 200 mg .ROUTE .STK-MED ONE Stop: 04/04/20 07:16 Propranolol HCl (Inderal) 40 mg PO ONETIME ONE Stop: 04/01/20 06:23 Last Admin: 04/01/20 07:07 Dose: 40 mg Documented by: Rocuronium [place] (Zemuron) Confirm Administered Dose 50 mg .ROUTE .STK-MED ONE Stop: 04/01/20 07:08 Sodium Polystyrene Sulfonate (Kayexalate) 30 gm PO ONETIME ONE Stop: 04/02/20 11:01 Last Admin: 04/02/20 11:05 Dose: 30 gm Documented by: Succinylcholine Chloride (Quelicin) Confirm Administered Dose 200 mg .ROUTE .STK-MED ONE Stop: 04/01/20 07:08 - Exam Quality Assessment: DVT Prophylaxis General: Alert, Oriented, Cooperative, Mild Distress Lungs: Clear to Auscultation, Normal Respiratory Effort Cardiovascular: Regular Rate, Regular Rhythm, No Murmurs GI/Abdominal Exam: Soft, No Organomegaly, Tender. No: Distended, Guarding, Rigid, Rebound Extremities: Non-Tender, Pedal Edema Sepsis Event Note - Evaluation Sepsis Screening Result: No Definite Risk - Focused Exam Vital Signs: Vital Signs Temp Temp Pulse Resp BP BP Pulse Ox 04/05/20 10:08 136/60 04/05/20 10:07 136/60 04/05/20 09:53 95.3 F L 16 140/54 L 04/05/20 06:00 96.9 F 60 10 L 127/50 L 96 04/05/20 05:00 97.5 F 66 12 137/61 98 04/05/20 04:00 55 L 12 110/42 L 98 04/05/20 03:00 96.8 F L 56 L 12 114/45 L 96 04/05/20 02:00 60 12 128/54 L 97 04/05/20 01:00 96.8 F L 65 11 L 123/38 L 95 04/05/20 00:00 55 L 11 L 138/54 L 96 04/04/20 23:00 60 11 L 139/64 96 Consult PN Assessment/Plan Procedures: Procedures ASSAY OF TROPONIN QUANT (08/29/18) CARDIAC REHAB/MONITOR (11/30/18) CARDIOVASCULAR STRESS TEST (01/07/18) CARDIOVASCULAR STRESS TEST (01/07/18) CARDIOVASCULAR STRESS TEST (03/27/16) CARDIOVASCULAR STRESS TEST (03/27/16) CHEST X-RAY 1 VIEW FRONTAL (12/25/16) CHEST X-RAY 2VW FRONTAL&LATL (10/30/16) COMPLETE CBC AUTOMATED (08/29/18) COMPLETE CBC W/AUTO DIFF WBC (12/25/16) COMPREHEN METABOLIC PANEL (12/25/16) ELECTROCARDIOGRAM TRACING (08/29/18) EMERGENCY DEPT VISIT (08/29/18) EMERGENCY DEPT VISIT (05/31/16) EMERGENCY DEPT VISIT (05/07/15) EMERGENCY DEPT VISIT (05/07/15) FIBRIN DEGRADATION QUANT (08/29/18) HT MUSCLE IMAGE SPECT MULT (01/07/18) METABOLIC PANEL TOTAL CA (08/29/18) POLYSOM 6/> YRS 4/> WILLI (06/05/14) POLYSOM 6/>YRS CPAP 4/> PARM (08/19/14) ROUTINE VENIPUNCTURE (08/29/18) TTE F-UP OR LMTD (10/11/18) TTE W/DOPPLER COMPLETE (12/06/17) X-RAY EXAM CHEST 2 VIEWS (08/29/18) Problem List Initiated/Reviewed/Updated: Yes My Orders Last 24 Hours: My Active Orders 04/04/20 09:59 Convert IV to Saline Lock [OM.PC] Routine 04/04/20 10:00 Lactobacillus Rhamnosus GG [Culturelle] 1 cap PO BID 04/04/20 11:00 cefTRIAXone [Rocephin] 2 gm Sodium Chloride 0.9% [Normal Saline] 50 ml IV Q24H Plan: ASSESSMENT AND RECOMMENDATIONS HYPOTENSION-resolved, surgical cultures are growing strep viridans -Saline lock IV -Ceftriaxone 2 g IV every 24 hours ACUTE KIDNEY INJURY-resolved -Closely monitor urine output and renal function HYPERKALEMIA-resolved STATUS POST SURGICAL PROCEDURE-renal function has stabilized, tolerating current diet, stable vital signs -Postoperative care per Dr. Nieto -Saline lock IV -Vigorous pulmonary toilet -Encourage activity Medical issues have stabilized, hospitalist service will sign off at this time. If we can be of further assistance in medical management during his hospital stay please feel free to reconsult.
[2020-04-05] MEDS: cefTRIAXone 2 GM in Sodium Chloride 0.9% 50 ML IV SCH (12:25)
[2020-04-05] MEDS: Pantoprazole 40 MG Vial IV SCH (13:58)
[2020-04-05] MEDS ORDERED: Furosemide 20 MG/2 ML VIAL IV ONE (14:00)
--- NOTE | 2020-04-05 15:53 | PN ---
DATE OF SERVICE: 04/04/2020 The patient has been afebrile with stable vital signs, still a little bit confused from the medications and such. His urine output has picked up nicely and labs look fairly good this morning. We will give him the next dose of Lasix. BNP remains somewhat high and it certainly appears to be a risk factor for congestive heart failure. Hemoglobin is 9 and we may consider transfusion tomorrow if it falls below 9 with his underlying cardiac history. Otherwise, will be undergoing delayed primary closure with a need for the ALIVIA drains out. We will leave the Paulino in 1 more day to monitor urine output. The cultures were growing strep viridans. We will ask Dr. Beltran to review and change the antibiotics as appropriate. Chico Nieto MD /[id number]
[2020-04-05] MEDS ORDERED: Pantoprazole 40 MG Tab.CR PO SCH (16:30)
[2020-04-05] MEDS: oxyCODONE 5 MG Tab PO PRN ×2 (17:43→21:56)
[2020-04-05] MEDS: LORazepam 0.5 MG Tab PO PRN (18:45)
--- NOTE | 2020-04-05 20:33 | PN ---
DATE OF SERVICE: 04/02/2020 The patient has been afebrile with fairly stable vital signs, did drop a little partially when sitting in a chair. He was a little bit overly sleepy, being in the night shaft and this was improved. He was up in the chair during the night for a significant amount of time. Urine output has been somewhat problematic during the night and the creatinine has crept up to 2 this morning and the potassium is 6.1, probably he has renal tubular acidosis related to the diabetes and I will consult Dr. Beltran regarding that. Otherwise, his hemoglobin did drop to 8.1 and we will give him 2 units of packed RBCs today and otherwise maximize activity and work with pulmonary toilet. Magnesium will be allowed to be supplemented and plan to proceed with a delayed primary closure of abdominal incision tomorrow. Chico Nieto MD /[id number]
[2020-04-05] MEDS: Insulin Lispro 100 Unit/ML 3 ML KwikPen SUBCUT SCH (21:00)
[2020-04-06] MEDS: oxyCODONE 5 MG Tab PO PRN ×3 (02:13→11:39)
[2020-04-06] MEDS: LORazepam 0.5 MG Tab PO PRN (02:40)
[2020-04-06 03:27] VITALS: PULSE 70
[2020-04-06] MEDS: Acetaminophen 325 MG Tab PO SCH ×2 (03:27→10:47)
[2020-04-06] MEDS ORDERED: Pantoprazole 40 MG Tab.CR PO SCH (07:30)
[2020-04-06] MEDS: Insulin Lispro 100 Unit/ML 3 ML KwikPen SUBCUT SCH (07:56)
[2020-04-06] MEDS: Lisinopril 2.5 MG Tab PO SCH (08:10)
[2020-04-06] MEDS: metFORMIN 500 MG Tab PO SCH (08:11)
[2020-04-06] MEDS: Aspirin 81 MG Tab.EC PO SCH (08:11)
[2020-04-06] MEDS: Lactobacillus Rhamnosus GG (Probiotic) Cap PO SCH (08:11)
[2020-04-06] MEDS: Isosorbide Mononitrate 30 MG Tab.ER PO SCH (08:11)
[2020-04-06] MEDS: Clopidogrel 75 MG Tab PO SCH (08:11)
[2020-04-06] MEDS: Propranolol 40 MG Tab PO SCH (08:11)
[2020-04-06] MEDS: Furosemide 20 MG/2 ML VIAL IV SCH (08:12)
[2020-04-06] MEDS: Docusate Sodium 100 MG Cap PO SCH (08:12)
--- NOTE | 2020-04-06 09:14 | PN ---
DATE OF SERVICE: 04/05/2020 The patient has been afebrile with stable vital signs. Mental status appeared to be improving a little bit. I already conveyed this information this morning. Did move his bowel this morning, so we will begin on a full liquid diet. His hemoglobin is 9.7 With his cardiovascular disease. We will give him 1 unit of packed RBCs today followed by some IV Lasix. BNP is down somewhat, so we are going to get him diuresed somewhat better. The Paulino catheter will come out today. We will otherwise maximize activity and work with pulmonary toilet. Have PT consult regarding increasing activity, and of note, his pathology report came back all benign both for gallbladder and the colon showing formation and acute on chronic inflammation but no malignancy. Chico Nieto MD /[id number]
[2020-04-06] MEDS: cefTRIAXone 2 GM in Sodium Chloride 0.9% 50 ML IV SCH (10:47)
[2020-04-06 10:56] VITALS: BP 170/77
--- NOTE | 2020-04-07 12:33 | CONS ---
DATE OF SERVICE: 04/06/2020 REFERRING PHYSICIAN: CONSULTING PHYSICIAN: Efraín Houser MD Consultation from Dr. Nieto. REASON FOR CONSULTATION: Evaluation status post open cholecystectomy and right hemicolectomy. SUMMARY OF HOSPITAL COURSE: This is a pleasant 74-year-old male who underwent an open cholecystectomy and right hemicolectomy on 04/04/2020. The patient remains in the intensive care unit at this time. This is all due to pain in the abdominal wall, especially right upper quadrant. At present, he has no nausea, vomiting, shortness of breath, or chest pain. His pain is described as 1 to 2/10. PAST MEDICAL HISTORY: Tonsillectomy, right total hip replacement, multiple knee surgeries including cartilage repair and arthroscopy, back surgery, cardiac catheterization, and he is anticoagulated on anti-platelet therapy including Plavix. SOCIAL HISTORY: He is not a smoker. FAMILY HISTORY: Noncontributory. REVIEW OF SYSTEMS: GENERAL: Appropriate for condition. HEENT: No symptoms. CARDIOVASCULAR: Coronary artery catheterization in August 2018. RESPIRATORY: No shortness of breath. GASTROINTESTINAL: The patient is passing gas and having bowel movements. GENITOURINARY: No dysuria. The remainder of review of systems reviewed and is negative. PHYSICAL EXAMINATION: VITAL SIGNS: Temperature 96.5, blood pressure 170/77, pulse 82, and 95% on room air. HEENT: Pupils are equal. NECK: Supple. LUNGS: Clear. CARDIOVASCULAR: Regular rhythm and rate. RESPIRATORY: Lungs are clear to consultation bilaterally. ABDOMEN: Incision is healing well. LABORATORY RESULTS: Show stabilized hemoglobin at 10.5. Sodium and potassium are also normal along with normal magnesium. IMAGING DATA: I did review this. He had no recent imaging in this facility. ASSESSMENT: Status post open cholecystectomy and right hemicolectomy. PLAN: The patient will probably be discharged in the next 24 hours. Please see discharge summary for further details. In addition, the patient does not need any transfusions at this time as his hemoglobin has improved. He has no signs of infection and is doing quite well. Efraín Houser MD /[id number] [email or web address]
--- NOTE | 2020-04-09 08:42 | OR ---
DATE OF PROCEDURE: 04/01/2020 SURGEON: Chico Nieto MD PREOPERATIVE DIAGNOSIS: Acute or subacute cholecystitis. POSTOPERATIVE DIAGNOSES: 1. Acute cholecystitis with extreme inflammation extending into the adjacent hepatic flexure of colon and adjacent liver. 2. Intraabdominal abscess. 3. Additional segment of small-bowel resection required to allow adequate mobility of the small bowel to undertake the ileocolic anastomosis. OPERATIVE PROCEDURE: 1. Diagnostic laparoscopy converted to laparotomy with: a. Right colectomy with ileocolic anastomosis (90682). b. Subtotal cholecystectomy (53583). c. Drainage of pericolonic abscess (92727). d. Partial resection of right lobe of liver adherent to the gallbladder and hepatic flexure of colon (91417). e. Small bowel resection (94069). ANESTHESIA: General. PIANO BUILDER: Radha Tomas PA-C INDICATIONS FOR PROCEDURE: This is a 74-year-old presenting last week with what appeared to be smoldering cholecystitis. He had an ultrasound which showed thickened gallbladder wall and tenderness on palpation of the gallbladder along with stones present within the gallbladder. He presents now for laparoscopic or if necessary open cholecystectomy. Potential risks of the procedure including bleeding, infection, injury to viscera such as common bile duct were all reviewed, and the patient wishes to proceed. OPERATIVE FINDINGS: Upon initial laparoscopic examination, the patient was noted to have severe cholecystitis. This was associated with a marked inflammatory adherence to the hepatic flexure of the colon and then on subsequent dissection, there was marked inflammatory adherence of the gallbladder and colon to the adjacent portion of the liver. The patient was noted to have an intraabdominal abscess with a Gram stains on this showing gram-positive cocci. This abscess was located posterior to the complex of the hepatic flexure of the colon and gallbladder. Based on the findings, this patient was converted to an open procedure soon after initiation of laparoscopic examination and underwent a right colectomy along with a subtotal cholecystectomy. Latter was undertaken so as to avoid dissecting out the common bile duct, cystic duct, and cystic artery area, which was also extremely inflamed and would be a very high risk for injury and as such those areas would be resected. Portion of the right lobe of liver was then also excised which was adherent to the mass. Some margin of this was obtained in the event that there might be a malignancy there in the gallbladder or colon. During the course of dissection, it became evident upon removal of the specimen that there appeared to be a fistulous connection between the gallbladder and colon likely related to gallstone eroding some of the gallbladder into the adjacent colon. DETAILS OF PROCEDURE: The patient was taken to the operating room, and after general endotracheal anesthesia was induced, the abdomen was prepped and draped. A transverse subumbilical incision was made. The peritoneal cavity entered under direct vision with an Optiview trocar, inflated to 15 mmHg pressure with CO2. The laparoscope was then reinserted. No underlying trocar insertion site injuries were seen. Following this, epigastric 10 mm trocar was placed along with a 5 mm right subcostal trocar. Initial examination showed some omentum adherent to the area of the gallbladder and hepatic flexure of the colon. As this was pulled back, it became evident there was a massive generalized inflammation of those organs which was quite hard and not amenable to adequate dissection, and based on the findings, we converted to an open procedure with the above findings being eventually identified. After removal of the trocars, the right subcostal incision was made and carried down through the skin and subcutaneous tissue to the musculature and peritoneum. Upon entering the peritoneal cavity, once again the above findings were identified. Initially, the small bowel was divided just proximal to the ileocecal valve with a KYLER stapler. This would allow division of the lateral peritoneal reflection of the cecum and ascending colon and division of the mesentery and those areas. This allowed us then to approach the inflammatory mass in a plane posterior, i.e., peeling away from the retroperitoneal attachments. As one approached underneath the segment of the gallbladder and colon, a roughly 15 mL abscess was encountered and the white purulent material was evacuated and cultured. Eventually, the colon could be dissected medially to a point where the mid transverse colon became quite soft. This was then divided with a KYLER purple load and remaining mesenteric attachments of the right colon were divided with KYLER marta as well. During the course of this colon dissection, care was taken to avoid injury to the duodenum and right ureter. As one began to peel off the colon from the gallbladder, the fistulous tract became evident and gallbladder was noted to have stone which prolapsed through the wall of the gallbladder. The lateral aspect of the hepatic flexure was also somewhat adherent to the liver and a portion of this was resected with the liver with the KYLER stapler. At this point, the decision was made to proceed with a subtotal cholecystectomy so as to avoid needing to dissect out the cystic duct triangle. Gallbladder then was dissected free from the gallbladder bed. The uppermost gallbladder was densely adherent to the liver at that level and portion of the liver was then resected with KYLER marta as well and this was sent attached to the gallbladder specimen. The gallbladder was then dissected gradually downward to the point where this was opened up and the stones were evacuated. Stones were quite large and the dissection then continued down to the point where the area of the cystic duct origin was encircled. This was then closed off with a pursestring stitch of 3-0 Vicryl stitch and then reinforced with fibrin sealant as well. Gallbladder specimen along with attached liver was then delivered from the field. The abdomen was then irrigated with meropenem and Zyvox-containing saline solution. Given the gram-positive cocci seen on the Gram stain, IV Zyvox was given per Anesthesia at this point as well. In order to establish GI tract continuity, the small bowel was mobilized upward toward the divided end of the transverse colon. This was quite immobile and roughly a 10- inch segment of distal small bowel was then resected along with its underlying mesentery which then allowed that end of the small bowel to come up to the divided transverse colon. A [id number] ileocolic anastomosis was then accomplished with 2 internal firings of the Endo-KYLER 60 mm marta. Common openings were closed transversely with KYLER marta as well. Angles of anastomosis and mesenteric defect were then approximated with some 3-0 Vicryl stitch. The area of the dissection was then inspected. Two Chris-Martin drains were then placed. Fibrin sealant was placed over the cystic duct closure site as well as the ileocolic anastomosis. Some omentum was then mobilized upward into the area of the subtotal colectomy and the abdomen was irrigated with antibiotic-containing saline solution. The posterior rectus sheath was then closed with a #2 Vicryl stitch as was the anterior rectus sheath and musculature lateral to that. Skin and subcutaneous tissue were felt to be high risk for wound infection and these were closed at this point and will be left open for 48 to 72 hours for a planned delayed primary closure to minimized infection risk. Prior to closure, bilateral transversus abdominis plane blocks were placed as well and the patient taken to the recovery room in satisfactory condition. There were no evident complications. Physician assistant director of public works, Radha Tomas, played an essential role in assisting in this case, helping to position the patient, retract structures as needed, as well as suturing and cutting sutures when indicated. Her presence improved the patient's safety and decreased operative time. Chico Nieto MD /[id number] MTDD
--- NOTE | 2020-04-09 17:18 | OR ---
DATE OF PROCEDURE: 04/04/2020 SURGEON: Chico Nieto MD PREOPERATIVE DIAGNOSIS: Open abdominal incision. POSTOPERATIVE DIAGNOSIS: Open abdominal incision. PROCEDURE: Delayed primary closure of open abdominal incision. ANESTHESIA: Local plus IV sedation. INDICATION FOR PROCEDURE: The patient is a 74-year-old status post a complicated operative procedure including drainage of intraabdominal abscess and a combined cholecystectomy and a colon resection. At the time of the original procedure, the patient was felt to be a high risk for a wound infection if primary closure was undertaken and this wound was packed open and a planned delayed primary closure is to be undertaken at this time. Potential risks of the procedure including bleeding and infection were reviewed, and the patient wishes to proceed. DETAILS OF PROCEDURE: The patient was taken to the operating room and placed in a supine position upright around 30 degrees to limit aspiration risk. The previous abdominal dressing was taken down and the wound was noted to be clean. The abdomen was then prepped and draped and bilateral transversus abdominis plane blocks were then placed at this time and the wound was then anesthetized with 1% lidocaine mixed with Marcaine and irrigated with meropenem-containing saline solution. Incision was then closed with 3-0 and 4-0 Vicryl stitch deep and then marta for the skin. Dressing was applied. The patient was taken to the recovery room in satisfactory condition. Chico Nieto MD /[id number]
== END 2020-04-06 11:45 | disposition home or self-care (01) | DRG 405 ==
LOC: JP.SDS 05:57 → JP.SDSSCHI 05:57 → JP.ICU 11:20 → EDSTATUS 13:30
PROVIDERS: ADMIT Surgery; ATTEND Surgery
PROC: 0FB10ZZ Excision of Right Lobe Liver, Open Approach (ICD-10-PCS; 2020-04-01)
PROC: 0DBL0ZZ Excision of Transverse Colon, Open Approach (ICD-10-PCS; 2020-04-01)
PROC: 0FT40ZZ Resection of Gallbladder, Open Approach (ICD-10-PCS; 2020-04-01)
PROC: 0FJ44ZZ Inspection of Gallbladder, Percutaneous Endoscopic Approach (ICD-10-PCS; 2020-04-01)
PROC: 0DB80ZZ Excision of Small Intestine, Open Approach (ICD-10-PCS; 2020-04-01)
PROC: 0D9L0ZZ Drainage of Transverse Colon, Open Approach (ICD-10-PCS; 2020-04-01)
PROC: 0HQ7XZZ Repair Abdomen Skin, External Approach (ICD-10-PCS; 2020-04-04)
PROC: 30233N1 Transfusion of Nonautologous Red Blood Cells into Peripheral Vein, Percutaneous Approach (ICD-10-PCS; principal; 2020-04-05)
DX: K81.0 Acute cholecystitis (principal); K65.1 Peritoneal abscess; N17.9 Acute kidney failure, unspecified; E11.9 Type 2 diabetes mellitus without complications; E78.5 Hyperlipidemia, unspecified; M16.9 Osteoarthritis of hip, unspecified; E03.9 Hypothyroidism, unspecified; I25.9 Chronic ischemic heart disease, unspecified; Z96.641 Presence of right artificial hip joint; H54.7 Unspecified visual loss; E78.00 Pure hypercholesterolemia, unspecified; I10 Essential (primary) hypertension; K21.9 Gastro-esophageal reflux disease without esophagitis; E87.5 Hyperkalemia; I95.9 Hypotension, unspecified; G89.29 Other chronic pain; M54.9 Dorsalgia, unspecified; F41.9 Anxiety disorder, unspecified; E66.9 Obesity, unspecified; Z98.49 Cataract extraction status, unspecified eye; Z95.5 Presence of coronary angioplasty implant and graft; Z95.1 Presence of aortocoronary bypass graft; Z98.890 Other specified postprocedural states; Z90.89 Acquired absence of other organs; Z79.890 Hormone replacement therapy; Z79.899 Other long term (current) drug therapy; Z79.84 Long term (current) use of oral hypoglycemic drugs; Z79.02 Long term (current) use of antithrombotics/antiplatelets; Z79.82 Long term (current) use of aspirin; Z87.891 Personal history of nicotine dependence; Z88.0 Allergy status to penicillin; K75.9 Inflammatory liver disease, unspecified; Z68.38 Body mass index [BMI] 38.0-38.9, adult
CPT/HCPCS: 36415; 36430; 80048; 80053; 82962; 83735; 83880; 84100; 85027; 86850; 86900; 86901; 86920; 86922; 87070; 87075; 87077; 87205; 88304; 88307; 93005; 93010; 94667; 94668; 97110-GP; 97116-GP; 97162-GP; 97530-GP; A9270-GY; C9113; J0171; J0330; J0694; J0696; J1100; J1170; J1815; J1940; J2020; J2060; J2185; J2405; J2704; J2710; J2795; J3010; J3410; J3475; J3490; J7030; J7040; J7050; J7120; J7121; P9016

== ENCOUNTER 2020-04-07 14:26 | Inpatient (IN) | payer MEDICARE ==
[2020-04-07] MEDS ORDERED: Sodium Chloride 0.9% 10 ML Syringe FLUSH ONE (15:05)
[2020-04-07] MEDS ORDERED: Iopamidol 612 MG/ML 100 ML Bottle IV SCH (15:15)
[2020-04-07] MEDS ORDERED: Sodium Chloride 0.9% 80 ML IV SCH (15:15)
--- NOTE | 2020-04-07 16:21 | CRLCT ---
INDICATION: POST OPERATIVE BLEEDING 437 IMAGES TAKEN HISTORY: Postoperative bleeding. COMPARISON: None. TECHNIQUE: CT of the abdomen and pelvis with intravenous contrast. Coronal/sagittal reconstruction images. 100 cc of Isovue-300 IV. FINDINGS: Lung bases: Coronary artery calcifications. Calcified granuloma in the left lower lobe. There is no pleural or pericardial effusion. There is atelectasis or scarring adjacent calcified granulomas at the right lung base. There is no acute airspace disease. There is no basilar pneumothorax. Abdomen/pelvis: The liver morphology is non cirrhotic. The spleen size is normal. There is fat stranding, fluid, and gas present in the right upper quadrant of the abdomen, and within the abdominal wall. There is no adrenal mass. The perihepatic fluid appears hyperdense, measuring 22 Hounsfield units. There are symmetric nephrograms. There is no solid renal mass or perinephric fluid. Benign left renal cyst. There is no pancreatic mass, pancreatic duct dilation, or glandular atrophy. Right hip arthroplasty. Air within urinary bladder, presumably from recent catheterization. There is no pneumatosis. There is no portal venous gas. Presumably, the patient has undergone a prior right hemicolectomy with ileotransverse anastomosis. Foci of gas extend to the brandy hepatis. No common bile duct stone. Radiopaque densities in the right upper quadrant may represent gallstones. There is no retroperitoneal, gastrohepatic ligament, or portal caval lymphadenopathy. No portal vein thrombosis. Degenerative changes at the symphysis pubis. Degenerative changes at the left hip. Bridging osteophytes at the SI joints. Degenerative disc disease throughout the thoracolumbar spine. The vertebral body heights are maintained on sagittal reconstruction images. Impression: 1. Fat stranding, fluid, and gas present in the right upper quadrant/anterior abdominal wall. 2. Fluid appears hyperdense, compatible with hemoperitoneum. 3. Postsurgical changes are compatible with a prior right hemicolectomy with ileotransverse anastomosis. Inflammatory changes/hemoperitoneum appears centered in the right upper quadrant, rather than at the anastomosis. 4. Per my discussion with the referring clinical service, the patient had a recent cholecystectomy, which was converted to a right hemicolectomy, with intraoperative finding of abscess. Calcific densities in the right upper quadrant may represent retained gallstones. 5. Case was reviewed with Dr. Augustine, referring clinical service, 04/07/2020, 1616 hours. Dictated by Efraín Michael MD @ 04/07/2020 4:19:16 PM Please note that all CT scans at this facility use dose modulation, iterative reconstruction, and/or weight-based dosing when appropriate to reduce radiation dose to as low as reasonably achievable. Dictated by: Efraín Michael MD @ 04/07/2020 16:19:32 (Electronically Signed)
--- NOTE | 2020-04-07 16:47 | EDM.PDOC ---
ED HPI GENERAL MEDICAL PROBLEM - General Chief Complaint: General Stated Complaint: BLEEDING RIGHT SIDE, POST SURGERY Time Seen by Provider: 04/07/20 14:49 Source of Information: Reports: Patient, Family History Limitations: Reports: No Limitations - History of Present Illness INITIAL COMMENTS - FREE TEXT/NARRATIVE: 74-year-old male who presents with bleeding from the ALIVIA drain sites on his right abdomen. Patient underwent a cholecystectomy with right hemicolectomy on 04/01/20 of last week. He is currently postoperative day 6. He was discharged from the ICU yesterday. He noted the bleeding this afternoon and at this time has been soaking through bandages about once an hour. He denies any new weakness or other associated symptoms including no abdominal pain, nausea, v omiting. Treatments HAIR CUTTER: Reports: Other (see below) Other Treatments HAIR CUTTER: oxycodone around 0800 - Related Data Allergies Allergy/AdvReac Type Severity Reaction Status Date / Time Penicillins Allergy Cannot Verified 08/29/18 23:31 Remember Home Meds: Home Meds Clopidogrel [Plavix] 75 mg PO DAILY 07/19/13 [History] Glimepiride [Amaryl] 6 mg PO BRK 07/19/13 [History] Isosorbide Mononitrate [Imdur] 60 mg PO DAILY 07/19/13 [History] Levothyroxine Sodium [Synthroid] 150 mcg PO DAILY 07/19/13 [History] Nitroglycerin [Nitrostat] 0.4 mg SL ASDIRECTED PRN 07/19/13 [History] Propranolol [Inderal] 40 mg PO BID 07/19/13 [History] metFORMIN [Glucophage] 1,000 mg PO BID 07/19/13 [History] ALPRAZolam [Xanax] 0.25 mg PO DAILY PRN 03/16/16 [History] Aspirin [Halfprin] 81 mg PO DAILY 03/16/16 [History] PARoxetine [Paxil] 20 mg PO DAILY 03/16/16 [History] Pantoprazole [Protonix] 40 mg PO DAILY PRN 03/16/16 [History] Insulin Degludec [Tresiba Flextouch U-200] 75 units SQ DAILY 01/05/18 [History] Lisinopril 2.5 mg PO DAILY 01/05/18 [History] atorvaSTATin [Lipitor] 40 tab PO BEDTIME 01/05/18 [History] Oxybutynin Chloride 5 mg PO DAILY 08/29/18 [History] Furosemide 20 mg PO DAILY 03/28/20 [History] SitaGLIPtin [Januvia] 50 mg PO DAILY 03/28/20 [History] hydrOXYzine HCL [Hydroxyzine HCl] 50 mg PO BEDTIME 03/28/20 [History] Past Medical History HEENT History: Reports: Impaired Vision Other HEENT History: wears glasses Cardiovascular History: Reports: High Cholesterol, Hypertension, SOB on Exertion, Stents Respiratory History: Reports: Other (See Below) Other Respiratory History: C pap-does not use Gastrointestinal History: Reports: Cholelithiasis, GERD Musculoskeletal History: Reports: Back Pain, Chronic Neurological History: Reports: Concussion Psychiatric History: Reports: Anxiety Endocrine/Metabolic History: Reports: Diabetes, Type II, Hypothyroidism, Obesity/BMI 30+ Hematologic History: Reports: Blood Transfusion(s) Dermatologic History: Reports: Other (See Below) Other Dermatologic History: currently has aquacel dressing on abdominal incision from surgery on 04/01 3 Alivia drain holes on right side middle one is leaking fairly steady stream of bright red blood when pt is upright, barely leaks when pt is laying down - Infectious Disease History Infectious Disease History: Reports: Chicken Pox, Measles, Mumps Other Infectious Disease History: states has been retested negative for MRSA - Past Surgical History HEENT Surgical History: Reports: Cataract Surgery, Oral Surgery, Tonsillectomy Cardiovascular Surgical History: Reports: Coronary Artery Stent Respiratory Surgical History: Reports: None GI Surgical History: Reports: Colonoscopy Endocrine Surgical History: Reports: None Neurological Surgical History: Reports: Lumbar Spine Musculoskeletal Surgical History: Reports: Arthroscopic Knee, Hip Replacement Dermatological Surgical History: Reports: None Social & Family History - Family History Family Medical History: Noncontributory Cardiac: Reports: Heart Valve Replacement, [place] Musculoskeletal: Reports: Arthritis Neurological: Reports: Alzheimers Disease Oncologic: Reports: Colon, Lung - Tobacco Use Smoking Status *Q: Former Smoker Used Tobacco, but Quit: Yes Month/Year Tobacco Last Used: 1989 - Caffeine Use Caffeine Use: Reports: Coffee, Soda - Recreational Drug Use Recreational Drug Use: No ED ROS GENERAL - Review of Systems Review Of Systems: Comprehensive ROS is negative, except as noted in HPI. ED EXAM, GENERAL - Physical Exam Exam: See Below Exam Limited By: No Limitations General Appearance: Alert Head: Atraumatic, Normocephalic Neck: Normal Inspection, Supple, Non-Tender, Full Range of Motion Respiratory/Chest: No Respiratory Distress, Lungs Clear, Normal Breath Sounds, No Accessory Muscle Use, Chest Non-Tender Cardiovascular: Normal Peripheral Pulses, Regular Rate, Rhythm, No Edema GI/Abdominal: Soft, Non-Tender, No Distention, Other (3 drainage sites are present in the right abdomen. There is bright red blood with slow ooze from the sites. No surrounding erythema, warmth or purulent drainage. Other abdominal surgical sites are clean dry and intact.) Extremities: Normal Inspection, Normal Range of Motion Neurological: Alert, Oriented, Normal Cognition, Normal Gait, No Motor/Sensory Deficits Skin Exam: Other (Abdominal surgical sites are clean dry and intact. There are 3 puncture sites on the right abdominal wall from previously placed ALIVIA drains that are no longer present. There is bright red blood oozing from all 3 sites.) Course - Vital Signs Last Recorded V/S: Last Vital Signs Temp 98.6 F 04/07/20 14:59 Pulse 84 04/07/20 16:26 Resp 16 04/07/20 16:26 BP 166/72 H 04/07/20 16:26 Pulse Ox 95 04/07/20 16:26 - Orders/Labs/Meds Orders: Active Orders 24 hr Category Date Time Status Iopamidol [Isovue-300 (61%)] Med 04/07/20 15:15 Active 100 ml IV . DIRECTED Sodium Chloride 0.9% [Normal Saline] 80 ml Med 04/07/20 15:15 Active IV ASDIRECTED Medication Orders Sodium Chloride (Normal Saline) 80 mls @ 3 mls/sec IV ASDIRECTED RAY Last Admin: 04/07/20 15:35 Dose: 3 mls/sec Documented by: THELASH Iopamidol (Isovue-300 (61%)) 100 ml IV . DIRECTED RAY Last Admin: 04/07/20 15:35 Dose: 100 ml Documented by: THELASH Oxycodone HCl (Oxycodone) 5 mg PO Q4H PRN PRN Reason: Pain Labs: Laboratory Tests 04/07/20 Range/Units 14:49 WBC 12.5 H (4.5-11.0) K/uL RBC 3.53 L (4.30-5.90) M/uL Hgb 10.9 L (12.0-15.0) g/dL Hct 34.3 L (40.0-54.0) % MCV 97 (80-98) fL MCH 31 (27-31) pg MCHC 32 (32-36) % Plt Count 320 (150-400) K/uL Meds: Medications Generic Name Dose Route Start Last Admin Trade Name Freq PRN Reason Stop Dose Admin Sodium Chloride 80 mls @ 3 mls/sec 04/07/20 15:15 04/07/20 15:35 Normal Saline IV 3 mls/sec ASDIRECTED RAY Administration Iopamidol 100 ml 04/07/20 15:15 04/07/20 15:35 Isovue-300 (61%) IV 100 ml . DIRECTED RAY Administration Oxycodone HCl 5 mg 04/07/20 16:44 Oxycodone PO Q4H PRN Pain Discontinued Medications Generic Name Dose Route Start Last Admin Trade Name Freq PRN Reason Stop Dose Admin Sodium Chloride 10 ml 04/07/20 15:05 04/07/20 15:35 Saline Flush FLUSH 04/07/20 15:06 10 ml ONETIME ONE Administration - Radiology Interpretation Free Text/Narrative:: CT of abdomen and pelvis with IV contrast Indication postoperative bleeding Impression: 1. Fat stranding, fluid, and gas present in the right upper quadrant/anterior abdominal wall. 2. Fluid appears hyperdense, compatible with hemoperitoneum. 3. Postsurgical changes are compatible with a prior right hemicolectomy with ileotransverse anastomosis. Inflammatory changes/hemoperitoneum appears centered in the right upper quadrant, rather than at the anastomosis. 4. Per my discussion with the referring clinical service, the patient had a recent cholecystectomy, which was converted to a right hemicolectomy, with intraoperative finding of abscess. Calcific densities in the right upper quadrant may represent retained gallstones. 5. Case was reviewed with Dr. Augustine, referring clinical service, 04/07/2020, 1616 hours. Dictated by Efraín Michael MD @ 04/07/2020 4:19:16 PM - Re-Assessments/Exams Free Text/Narrative Re-Assessment/Exam: 04/07/20 16:[address] Houser. Will admit for surgical evaluation and management. Departure - Departure Time of Disposition: 16:45 Disposition: Admitted As Inpatient 66 Condition: Good Clinical Impression: Postoperative bleeding from incision - Discharge Information Sepsis Event Note (ED) - Evaluation Sepsis Screening Result: No Definite Risk - Focused Exam Vital Signs: Vital Signs Temp Pulse Resp BP Pulse Ox 04/07/20 16:26 84 16 166/72 H 95 04/07/20 15:43 87 146/58 H 93 L 04/07/20 15:42 89 14 146/58 H 96 04/07/20 15:29 90 14 179/64 H 95 04/07/20 14:59 98.6 F 90 14 179/64 H 94 L - My Orders Last 24 Hours: My Active Orders 04/07/20 15:15 Iopamidol [Isovue-300 (61%)] 100 ml IV . DIRECTED Sodium Chloride 0.9% [Normal Saline] 80 ml IV ASDIRECTED - Assessment/Plan Last 24 Hours: My Active Orders 04/07/20 15:15 Iopamidol [Isovue-300 (61%)] 100 ml IV . DIRECTED Sodium Chloride 0.9% [Normal Saline] 80 ml IV ASDIRECTED Assessment:: 74-year-old male postop day 6 from a laparotomy for cholecystectomy and right hemicolectomy. Discharged from ICU yesterday. Began to have bleeding from the ALIVIA drain sites in the right abdomen this evening presented to emergency department for further evaluation. Hemodynamically stable. CT imaging suggests hemoperitoneum. No abdominal pain or signs of shock at this time. Patient will be admitted to the surgical service of Dr. Houser. Keep n.p.o. after midnight. Findings and plan discussed with patient and his . Patient is medically stable at this time. Patient will be crossed for 2 units to be administered as needed with any signs of hemorrhagic shock or significant decrease in hemoglobin. Plan: Admit to surgical service.
[2020-04-07] MEDS ORDERED: LORazepam 0.5 MG Tab PO PRN (17:09)
[2020-04-07] MEDS: oxyCODONE 5 MG Tab PO PRN (17:54)
[2020-04-07] MEDS ORDERED: diphenhydrAMINE 25 MG Cap PO PRN (18:10)
[2020-04-07] MEDS ORDERED: fentaNYL 100 MCG/2 ML SDV IVPUSH PRN ×3 (18:10)
[2020-04-07] MEDS ORDERED: Ondansetron 4 MG Tab.DIS PO PRN (18:10)
[2020-04-07] MEDS ORDERED: Promethazine 25 MG in Sodium Chloride 0.9% 50 ML IV PRN (18:10)
[2020-04-07] MEDS ORDERED: Ondansetron 4 MG/2 ML SDV IVPUSH PRN (18:10)
[2020-04-07] MEDS ORDERED: Morphine 4 MG/ML Syringe IVPUSH PRN ×3 (18:10)
[2020-04-07] MEDS ORDERED: Promethazine 12.5 MG in Sodium Chloride 0.9% 50 ML IV PRN (18:10)
[2020-04-07] MEDS ORDERED: diphenhydrAMINE 50 MG/ML SDV IVPUSH PRN ×2 (18:10)
[2020-04-07] MEDS ORDERED: Scopolamine 1.5 MG Transdermal Patch TRDERM PRN (18:10)
[2020-04-07] MEDS ORDERED: Sodium Chloride 0.9% 1,000 ML IV SCH (18:15)
[2020-04-08] MEDS: oxyCODONE 5 MG Tab PO PRN ×5 (00:26→20:57)
[2020-04-08] MEDS ORDERED: Nitroglycerin 0.4 MG Tab.SL SL PRN (07:05)
[2020-04-08] MEDS ORDERED: ALPRAZolam 0.25 MG Tab PO PRN (07:05)
[2020-04-08] MEDS ORDERED: Lactated Ringers 1,000 ML IV SCH (07:45)
--- NOTE | 2020-04-08 08:48 | HP ---
HISTORY OF PRESENT ILLNESS: Sohail was readmitted to the hospital last evening for bleeding from his ALIVIA drain site on right abdomen. He had a cholecystectomy with right hemicolectomy on 04/01/2020. He was discharged on postoperative day #6. He stated that the bleeding started in the afternoon and he was having to change bandages every hour. He had no other associated signs and symptoms. ALLERGIES: PENICILLIN. HOME MEDICATIONS: See EMR. PAST MEDICAL HISTORY: 1. Hypercholesterolemia. 2. Hypertension. 3. Short of breath on exertion. 4. Sleep apnea. 5. Chronic back pain. 6. Anxiety. 7. Diabetes type 2. 8. Hypothyroidism. 9. Obesity. BMI 40. PAST SURGICAL HISTORY: Most recent is open cholecystectomy with right hemicolectomy on 04/01/2020. Surgeon: Chico Nieto MD. Cataract surgery, tonsillectomy, coronary artery stent, lumbar spine surgery, arthroscopy, knee and hip replacement. SOCIAL HISTORY: . Does not smoke. Drinks coffee and soda. Retired. FAMILY MEDICAL HISTORY: Positive for heart disease, arthritis, Alzheimer's. Family history of colon and lung cancer. REVIEW OF SYSTEMS: HEENT: Negative. CARDIOVASCULAR: Denies any chest pain, shortness of breath, fast or irregular heart beat. LUNGS: No cough. GASTROINTESTINAL: No abdominal pain. Denies any further bleeding since packing and pressure dressing placed in ER. EXTREMITIES: No joint pain or swelling. NEUROLOGIC: Denies any dizziness, weakness, loss of coordination. PSYCHIATRIC: No insomnia, depression. Denies any excessive anxiety. Remainder of review of systems negative for any pertinent positives and negatives. OBJECTIVE: GENERAL: Sohail Arceo is a 74-year-old male. VITAL SIGNS: Height is 5 feet 8 inches, weight is 268 pounds, BMI is 40. TPR at 04:12 is 98.2; 110; 18; blood pressure 170/96. HEENT: Negative. NECK: Supple. HEART: Regular rate and rhythm. LUNGS: Clear. ABDOMEN: Pressure dressing over the right trocar sites. There is no further new drainage from that area. Several of the 4x4s are red. Ones next to the skin are actually dried blood. EXTREMITIES: Without peripheral edema. NEUROLOGIC: Alert, orientated. Cranial nerves II through XII intact. SKIN: Negative for any rash. PSYCHIATRIC: Mood and affect appropriate. ASSESSMENT: Bleeding from ALIVIA drain site, status post cholecystectomy and right colectomy, diabetes type 2, hypothyroidism, history of cardiac stents, chronic back pain, anxiety. PLAN: 1. Consistent carb diet. 2. SCDs. 3. Restart home medications; Xanax 0.25 mg p.o. daily p.r.n. anxiety; atorvastatin 40 mg p.o. at bedtime; Lasix 20 mg p.o. daily; Amaryl 6 mg p.o. before breakfast; hydroxyzine 50 mg p.o. at bedtime; Tresiba 75 units subcu daily; levothyroxine 150 mcg daily; Prinivil 2.5 mg p.o. daily; metformin 1000 mg p.o. b.i.d.; nitroglycerin 0.4 sublingual as directed; Paxil 20 mg p.o. daily; propranolol 40 mg p.o. b.i.d.; Januvia 50 mg p.o. daily. 4. Hold Plavix and aspirin. 5. Change dressing over ALIVIA drain site. 6. Check Accu-Cheks q.i.d. and at bedtime. 7. Lab work in a.m. CBC, CMP. 8. Magnesium 2 g IV q.6 hours until the patient goes home. 9. Potassium chloride 40 mEq p.o. daily and K-Phos 60 millimoles IV one time today. 10.Recheck labs in a.m. 11.We will evaluate p.r.n. or in a.m. Radha Tomas PA-C /[id number]
[2020-04-08] MEDS: Propranolol 40 MG Tab PO SCH ×2 (09:59→21:59)
[2020-04-08] MEDS: Levothyroxine 50 MCG Tab PO SCH (09:59)
[2020-04-08] MEDS: PARoxetine 20 MG Tab PO SCH (10:00)
[2020-04-08] MEDS: Furosemide 20 MG Tab PO SCH (10:00)
[2020-04-08] MEDS: Glimepiride 2 MG Tab PO SCH (10:00)
[2020-04-08] MEDS: Potassium Chloride 20 MEQ Tab.ER PO SCH (10:00)
[2020-04-08] MEDS: Lisinopril 2.5 MG Tab PO SCH (10:01)
[2020-04-08] MEDS: metFORMIN 500 MG Tab PO SCH ×2 (10:01→16:08)
[2020-04-08] MEDS: atorvaSTATin 20 MG Tab PO SCH (10:01)
[2020-04-08] MEDS: Isosorbide Mononitrate 30 MG Tab.ER PO SCH (10:01)
[2020-04-08] MEDS: INSULIN DEGLUDEC SQ SCH (10:04)
[2020-04-08] MEDS: Magnesium Sulfate/Water 2 GM in Premix Bag 1 BAG IV SCH ×3 (10:09→22:00)
[2020-04-08] MEDS: NACL IV SCH ×8 (10:10→19:19)
[2020-04-08] MEDS: POTASSIUM PHOS IV SCH ×8 (10:10→19:19)
[2020-04-08] MEDS: SODIUM CHLORIDE IV SCH ×8 (10:10→19:19)
[2020-04-08] MEDS: Bacitracin Oint 28.35 GM Tube TOP SCH ×2 (14:54→22:03)
[2020-04-08] MEDS ORDERED: hydrOXYzine HCl 25 MG Tab PO SCH (21:00)
[2020-04-09] MEDS: oxyCODONE 5 MG Tab PO PRN (01:39)
[2020-04-09] MEDS: Magnesium Sulfate/Water 2 GM in Premix Bag 1 BAG IV SCH (04:18)
[2020-04-09 07:14] VITALS: PULSE 81
[2020-04-09] MEDS: Furosemide 20 MG Tab PO SCH (08:37)
[2020-04-09] MEDS: atorvaSTATin 20 MG Tab PO SCH (08:37)
[2020-04-09] MEDS: metFORMIN 500 MG Tab PO SCH (08:37)
[2020-04-09] MEDS: Potassium Chloride 20 MEQ Tab.ER PO SCH (08:37)
[2020-04-09] MEDS: Lisinopril 2.5 MG Tab PO SCH (08:38)
[2020-04-09] MEDS: PARoxetine 20 MG Tab PO SCH (08:38)
[2020-04-09] MEDS: Glimepiride 2 MG Tab PO SCH (08:38)
[2020-04-09] MEDS: Propranolol 40 MG Tab PO SCH (08:38)
[2020-04-09] MEDS: Isosorbide Mononitrate 30 MG Tab.ER PO SCH (08:38)
[2020-04-09] MEDS: INSULIN DEGLUDEC SQ SCH (08:39)
[2020-04-09] MEDS: Levothyroxine 50 MCG Tab PO SCH (08:39)
[2020-04-09] MEDS: Bacitracin Oint 28.35 GM Tube TOP SCH (08:39)
[2020-04-09 08:44] VITALS: BP 141/70
--- NOTE | 2020-04-09 11:48 | DISCH ---
ADMISSION DIAGNOSES: 1. Bleeding from ALIVIA drain site. 2. Cholecystectomy with right hemicolectomy, 03/14/2020. 3. Diabetes type 2. 4. Hypercholesterolemia. 5. Hypertension. 6. Short of breath with exertion. 7. Sleep apnea. 8. Chronic back pain. 9. Hypothyroidism. 10.Morbid obesity, BMI of 40. DISCHARGE DIAGNOSES: Resolution of ALIVIA site bleeding. HISTORY: Sohail was readmitted to the hospital on 04/07/2020 for bleeding from the ALIVIA site on the right mid abdomen. He was discharged on the day prior, states he was doing well, and all of a sudden he had some bright red bleeding, and that they had a difficult time stopping on his right mid ALIVIA drain site. HOSPITAL COURSE: Sohail was admitted through the emergency department, and there was a pressure dressing over the right ALIVIA drain site. The bleeding had stopped with that pressure dressing. Hemoglobin on admission was 10.9; checked at 0400, was 10.4 and this a.m. was 10.5. Potassium was 3. He was given potassium replacement, as well as magnesium was replaced and K-Phos. He did have some blood sugars with 2 low blood sugars, one at 67 before supper and one at 37 during the night. Sohail was able to be discharged to home after seeing Barbara Cortes RN, CDE, CBN. PHYSICAL EXAMINATION: GENERAL: Sohail is a pleasant 74-year-old male. VITAL SIGNS: Height is 5 feet 8 inches. Weight is 268 pounds. TPR at 0711; 96.6, 81, 18. Blood pressure 161/68. HEENT: Negative. NECK: Supple. HEART: Regular rate and rhythm.. LUNGS: Clear. ABDOMEN: There is no further draining at the ALIVIA drain site. Dressings are dry and intact. Abdominal binder is on. EXTREMITIES: Without peripheral edema. DISPOSITION: Discharged to home. CONDITION: Stable and improving. FOLLOWUP APPOINTMENT: With Chico Nieto on 04/17/2020, to call for a time. MEDICATIONS: He is to resume his home medications; Xanax 0.25 mg oral daily p.r.n. anxiety, aspirin 81 mg oral daily, Plavix 75 mg oral daily, furosemide 20 mg oral daily, Amaryl 6 mg oral with breakfast, Tresiba U200 75 units subcu daily, Imdur 60 mg oral daily, levothyroxine 150 mcg daily, lisinopril 2.5 mg oral daily, Nitrostat 0.4 sublingual as directed, oxybutynin 5 mg oral daily, Paxil 20 mg oral daily, Protonix 40 mg oral daily, Inderal 40 mg oral twice daily, Januvia 50 mg oral daily, Lipitor 40 mg oral at bedtime, hydroxyzine 50 mg oral at bedtime, metformin 1000 mg oral twice daily. DIET: Diabetic diet. Drink 8 to 10 glasses of water a day. ACTIVITY: No lifting greater than 10 pounds for 1 month. Driving: Do not drive on pain medication. Shower/bathing: May shower. DISCHARGE INSTRUCTIONS: Notify provider if any fever, increased pain, swelling, redness, drainage, nausea, or vomiting. Keep site clean and dry. Wear abdominal binder for 6 weeks if tolerated. Special instructions: Use incentive spirometer 10 times every hour while awake. Check blood sugars and follow up with Barbara Cortes RN, CDE, CBN for diabetes.
== END 2020-04-09 09:45 | disposition home or self-care (01) | DRG 920 ==
LOC: JP.ED 14:26 → JP.MS 16:38 → UNDODISIN 17:15
PROVIDERS: ADMIT Surgery; ATTEND Surgery
DX: L76.22 Postprocedural hemorrhage of skin and subcutaneous tissue following other procedure (principal); Z90.49 Acquired absence of other specified parts of digestive tract; H54.7 Unspecified visual loss; Z68.41 Body mass index [BMI] 40.0-44.9, adult; E78.00 Pure hypercholesterolemia, unspecified; I10 Essential (primary) hypertension; K21.9 Gastro-esophageal reflux disease without esophagitis; M54.9 Dorsalgia, unspecified; G89.29 Other chronic pain; F41.9 Anxiety disorder, unspecified; E11.9 Type 2 diabetes mellitus without complications; E03.9 Hypothyroidism, unspecified; E66.9 Obesity, unspecified; Z96.649 Presence of unspecified artificial hip joint; G47.30 Sleep apnea, unspecified; Z88.0 Allergy status to penicillin; Z79.890 Hormone replacement therapy; Z79.02 Long term (current) use of antithrombotics/antiplatelets; Z79.899 Other long term (current) drug therapy; Z95.5 Presence of coronary angioplasty implant and graft; Z98.49 Cataract extraction status, unspecified eye; Z79.4 Long term (current) use of insulin; Z79.82 Long term (current) use of aspirin; Z87.891 Personal history of nicotine dependence
CPT/HCPCS: 36415; 74177; 85027; J7050; Q9967; 80053; 82962; 83735; 84100; 86850; 86900; 86901; 99284; 99284-25; A9270-GY; J3475; J7120

== ENCOUNTER 2022-07-25 11:14 | Emergency (ER) | payer MEDICARE ==
[2022-07-25 11:31] VITALS: BP 132/59; PULSE 104
== END 2022-07-25 12:06 | disposition home or self-care (01) ==
LOC: JP.ED 11:14
DX: L03.115 Cellulitis of right lower limb (principal); E78.00 Pure hypercholesterolemia, unspecified; I10 Essential (primary) hypertension; I25.2 Old myocardial infarction; E11.9 Type 2 diabetes mellitus without complications; E66.9 Obesity, unspecified; Z68.39 Body mass index [BMI] 39.0-39.9, adult; Z88.0 Allergy status to penicillin; Z79.899 Other long term (current) drug therapy; Z79.84 Long term (current) use of oral hypoglycemic drugs; Z79.82 Long term (current) use of aspirin; Z79.4 Long term (current) use of insulin; Z90.49 Acquired absence of other specified parts of digestive tract
CPT/HCPCS: 99282

== ENCOUNTER 2022-07-26 12:15 | Emergency (ER) | payer MEDICARE ==
[2022-07-26 15:06] LABS: ESTIMATED GFR 41 mL/min (>60)
[2022-07-26] MEDS ORDERED: Piperacillin/Tazobactam 4.5 GM in Sodium Chloride 0.9% 50 ML IV ONE (15:52)
[2022-07-26] MEDS ORDERED: Sodium Chloride 0.9% 10 ML Syringe FLUSH PRN (15:53)
[2022-07-26 16:26] VITALS: BP 132/65; PULSE 94
[2022-07-26] MEDS ORDERED: Ibuprofen 600 MG Tab PO ONE (17:56)
== END 2022-07-26 18:03 ==
LOC: JP.ED 12:15
DX: E11.621 Type 2 diabetes mellitus with foot ulcer (principal); L97.416 Non-pressure chronic ulcer of right heel and midfoot with bone involvement without evidence of necrosis; L03.115 Cellulitis of right lower limb; I25.119 Atherosclerotic heart disease of native coronary artery with unspecified angina pectoris; E78.00 Pure hypercholesterolemia, unspecified; I10 Essential (primary) hypertension; I25.2 Old myocardial infarction; K21.9 Gastro-esophageal reflux disease without esophagitis; E03.9 Hypothyroidism, unspecified; E66.9 Obesity, unspecified; Z88.0 Allergy status to penicillin; Z79.899 Other long term (current) drug therapy; Z79.4 Long term (current) use of insulin; Z68.39 Body mass index [BMI] 39.0-39.9, adult
CPT/HCPCS: 36415; 73630-RT; 80053; 83605; 84145; 85025; 86140; 87040; 96365; 96367; 99285-25; A9270-GY; J2543; J3370; J3490; J7050

== ENCOUNTER 2022-11-11 18:56 | Emergency (ER) | payer MEDICARE ==
[2022-11-11 19:27] VITALS: BP 147/58; PULSE 77
== END 2022-11-11 19:52 | disposition home or self-care (01) ==
LOC: JP.ED 18:56
DX: S91.111A Laceration without foreign body of right great toe without damage to nail, initial encounter (principal); I25.119 Atherosclerotic heart disease of native coronary artery with unspecified angina pectoris; E78.00 Pure hypercholesterolemia, unspecified; I10 Essential (primary) hypertension; I25.2 Old myocardial infarction; K21.9 Gastro-esophageal reflux disease without esophagitis; E11.9 Type 2 diabetes mellitus without complications; E03.9 Hypothyroidism, unspecified; E66.9 Obesity, unspecified; Z68.30 Body mass index [BMI] 30.0-30.9, adult; Z88.0 Allergy status to penicillin; Z79.899 Other long term (current) drug therapy; Z79.4 Long term (current) use of insulin; Z79.82 Long term (current) use of aspirin; Z87.891 Personal history of nicotine dependence; W26.8XXA Contact with other sharp object(s), not elsewhere classified, initial encounter
CPT/HCPCS: 99283

== ENCOUNTER 2023-03-07 09:36 | Emergency (ER) | payer MEDICARE ==
[2023-03-07 11:46] LABS: BASOPHILS PERCENT AUTO 0.3 % (0.1-1.3); EOSINOPHILS PERCENT AUTO 0.3 % (0.0-5.4); HEMATOCRIT 31.4 % (38.4-49.7); HEMOGLOBIN 10.6 g/dL (12.9-16.9); IMMATURE GRAN ABSOLUTE AUTO 0.08 K/uL (0.00-0.23); IMMATURE GRAN PERCENT AUTO 1.2 % (0.0-0.7); LYMPHOCYTES ABSOLUTE AUTO 0.48 K/uL (0.8-3.3); LYMPHOCYTES PERCENT AUTO 7.4 % (11.4-47.7); MEAN CORPUSCULAR HEMOGLOBIN 34.4 pg (31.6-35.5); MEAN CORPUSCULAR HGB CONC 33.8 g/dL (31.6-35.5); MEAN CORPUSCULAR VOLUME 101.9 fL (81.4-99.0); MONOCYTES ABSOLUTE AUTO 0.76 K/uL (0.20-0.90); MONOCYTES PERCENT AUTO 11.7 % (3.3-12.6); NEUTROPHILS ABSOLUTE AUTO 5.14 K/uL (1.0-7.6); NEUTROPHILS PERCENT AUTO 79.1 % (40.0-78.1); PLATELET COUNT,PLT 164 K/uL (130-375); RED BLOOD CELL COUNT 3.08 M/uL (4.14-5.76); WHITE BLOOD CELL COUNT,WBC 6.5 K/uL (3.2-11.0)
[2023-03-07 11:49] LABS: BASOPHILS ABSOLUTE AUTO 0.02 K/uL (0.00-0.10); EOSINOPHILS ABSOLUTE AUTO 0.02 K/uL (0.00-0.40)
[2023-03-07 12:04] LABS: CALCIUM 8.4 mg/dL (8.5-10.1); CREATININE 1.4 mg/dL (0.8-1.3); EST CRCL DRUG DOSING (CG) 41.31 mL/min; POTASSIUM,K 4.1 mmol/L (3.6-5.2)
[2023-03-07 12:05] LABS: ANION GAP 9.1 mmol/L (5.0-14.0)
[2023-03-07 12:26] LABS: LYME AB IgG Negative (Negative); LYME AB IgM Negative (Negative)
[2023-03-07 12:40] VITALS: BP 128/62; PULSE 84
[2023-03-07 12:47] LABS: APPEARANCE,URINE CLEAR (CLEAR); BILIRUBIN,URINE NEGATIVE (NEGATIVE); COLOR,URINE YELLOW (YELLOW); GLUCOSE,URINE NEGATIVE (NEGATIVE); KETONES,URINE NEGATIVE (NEGATIVE); LEUKOCYTE ESTERASE,URINE NEGATIVE (NEGATIVE); NITRITE,URINE NEGATIVE (NEGATIVE); OCCULT BLOOD,URINE NEGATIVE (NEGATIVE); PH,URINE 5.5 (5.0-8.0); PROTEIN,URINE 30 mg/dL (NEGATIVE); UROBILINOGEN,URINE 0.2 EU/dL (0.2-1.0)
[2023-03-07 13:02] LABS: BACTERIA,URINE FEW; EPITHELIAL CELLS,URINE OCCASIONAL; RBC,URINE NOT SEEN (0-5); WBC,URINE NOT SEEN (0-5)
[2023-03-07 13:03] LABS: AMORPHOUS SEDIMENT,URINE FEW; MUCUS,URINE RARE
== END 2023-03-07 14:04 | disposition home or self-care (01) ==
LOC: JP.ED 09:36
DX: R50.9 Fever, unspecified (principal); I25.10 Atherosclerotic heart disease of native coronary artery without angina pectoris; E78.00 Pure hypercholesterolemia, unspecified; I10 Essential (primary) hypertension; I25.2 Old myocardial infarction; K21.9 Gastro-esophageal reflux disease without esophagitis; E11.9 Type 2 diabetes mellitus without complications; E03.9 Hypothyroidism, unspecified; E66.9 Obesity, unspecified; Z88.0 Allergy status to penicillin; Z79.899 Other long term (current) drug therapy; Z79.82 Long term (current) use of aspirin; Z79.4 Long term (current) use of insulin; Z68.38 Body mass index [BMI] 38.0-38.9, adult
CPT/HCPCS: 36415; 80048; 81001; 85025; 86618; 99284

== ENCOUNTER 2024-08-23 10:19 | Emergency (ER) | payer MEDICARE ==
[2024-08-23] MEDS: EPINEPHrine 1:10,000 1 MG/10 ML Syringe IV ONE ×3 (10:22→10:30)
[2024-08-23] MEDS: Sodium Chloride 0.9% 1,000 ML IV ONE (10:23)
== END 2024-08-23 10:32 | disposition expired ==
LOC: JP.ED 10:20
DX: I46.9 Cardiac arrest, cause unspecified (principal); I25.10 Atherosclerotic heart disease of native coronary artery without angina pectoris; I25.2 Old myocardial infarction; I10 Essential (primary) hypertension; E78.00 Pure hypercholesterolemia, unspecified; K21.9 Gastro-esophageal reflux disease without esophagitis; E11.9 Type 2 diabetes mellitus without complications; E03.9 Hypothyroidism, unspecified; E66.9 Obesity, unspecified; Z68.38 Body mass index [BMI] 38.0-38.9, adult; Z86.16 Personal history of COVID-19; Z95.5 Presence of coronary angioplasty implant and graft; Z90.49 Acquired absence of other specified parts of digestive tract; Z88.0 Allergy status to penicillin; Z79.4 Long term (current) use of insulin; Z79.82 Long term (current) use of aspirin; Z79.84 Long term (current) use of oral hypoglycemic drugs; Z79.890 Hormone replacement therapy; Z79.899 Other long term (current) drug therapy
CPT/HCPCS: 51702; 92950; 99285; J7030